=== PATIENT | male | born 1960 | race Caucasian/White ===

== ENCOUNTER 2016-10-23 05:47 | Inpatient (IN) | payer BC ==
--- NOTE | 2016-10-23 05:57 | Emergency Department Record ---
History of Present Illness - General Chief Complaint: Shortness of breath Stated Complaint: SOB/ ELINOR Time Seen by Provider: 10/23/16 05:56 Source: Patient Mode of Arrival: Ambulatory Limitations: No limitations - History of Present Illness Initial Comments: The patient is here due to a 13 hour hx of ELINOR, SOB and CP with coughing and breathing. He is coughing up sputum intermittently at times. The patient has a hx of COPD but has not had a problem with breathing for a few weeks. The pain is described as sharp and stabbing at times and tightness at times but it is much worse with breathing and coughing. He denies any sweating, nausea, lightheadedness. The patient does state the pain is improved with sitting forward and he has had Pericarditis in the past which was similar (but much worse in severity). MD Complaint: Cough, Shortness of breath Onset/Timin -: Hour(s) Improves With: Nothing Worsens With: Nothing Known History Of: COPD Associated Symptoms: Chest pain Treatments Prior to Arrival: None - Related Data Home Medications Medication Instructions Recorded Confirmed Last Taken No Home Med [NO HOME MEDS] 10/23/16 10/23/16 Unknown Allergies Allergy/AdvReac Type Severity Reaction Status Date / Time No Known Drug Allergies Allergy Verified 07/03/15 21:30 Travel Screening - Travel/Exposure Within Last 30 Days Have you traveled within the last 30 days?: No - Travel/Exposure Within Last Year Have you traveled outside the [place] in the last year?: No - Additonal Travel Details Have you been exposed to anyone with a communicable illness?: No - Travel Symptoms Symptom Screening: None Review of Systems Constitutional: Denies: Chills, Fever Eyes: Denies: Eye discharge ENT: Reports: Congestion Respiratory: Reports: Cough, Dyspnea Cardiovascular: Denies: Arrhythmia Endocrine: Denies: Fatigue Gastrointestinal: Denies: Diarrhea, Vomiting Genitourinary: Denies: Dysuria Musculoskeletal: Denies: Arthralgia Skin: Denies: Bruising Past Medical History - SOCIAL HISTORY Smoking Status: Current every day smoker Alcohol Use: Heavy Alcohol Use Comment: 6 beers daily Drug Use: None - RESPIRATORY Hx Respiratory Disorders: Yes Hx Bronchitis: Yes Hx COPD: Yes Comment:: emphysema - CARDIOVASCULAR Hx Cardio Disorders: Yes Comment:: pericarditis in past - NEURO Hx Neuro Disorders: No - GI Hx GI Disorders: No Comment:: Hx of Hep C - Hx Genitourinary Disorders: No - ENDOCRINE Hx Endocrine Disorders: No - MUSCULOSKELETAL Hx Musculoskeletal Disorders: No - PSYCH Hx Psych Problems: No - HEMATOLOGY/ONCOLOGY Hx Hematology/Oncology Disorders: Yes Comment:: HEPITITIS C Family Medical History Any Significant Family History?: No Hx Cancer: Grandparents Hx Diabetes: Father Hx Heart Disease: Father Hx HTN: Father, Mother, Brother/Sister, Grandparents Physical Exam - General General Appearance: Alert, Oriented x3, Cooperative, No acute distress - Head Head exam: Atraumatic, Normocephalic, Normal inspection - Eye Eye exam: Normal appearance, PERRL - Neck Neck exam: Normal inspection, Full ROM. negative: Tenderness - Respiratory Respiratory exam: Decreased breath sounds, Wheezes (mildly at the bases.). negative: Normal lung sounds bilaterally - Cardiovascular Cardiovascular Exam: Regular rate, Normal rhythm, Normal heart sounds - GI/Abdominal GI/Abdominal exam: Soft, Normal bowel sounds. negative: Tenderness - Extremities Extremities exam: Normal inspection, Full ROM, Normal capillary refill. negative: Tenderness - Neurological Neurological exam: Normal gait. negative: Abnormal gait Course Vital Signs 10/23/16 10/23/16 05:48 05:54 Temperature 97.7 F Pulse Rate 83 Respiratory 16 Rate Blood Pressure 117/81 Pulse Ox 97 - Reevaluation(s) Reevaluation #1: The patient is doing much better after the 2 breathing treatments. He states the pain is almost gone and his breathing is much better. 10/23/16 06:34 Reevaluation #2: The patient is doing a lot better at this time. He is resting much more comfortably with much less ELINOR and now no chest discomfort. On exam his lungs still have decreased breath sounds but better aeration with no wheezes. The patient is coughing now with a productive green sputum. 10/23/16 06:45 10/23/16 06:47 Reevaluation #3: 2nd EKG: NSR at 75, Neg ST-T changes. The quality of the EKG is much improved. 10/23/16 06:47 Reevaluation #4: The patient is still doing very well. I did discuss the case with Dr. Lemon who is his PCP and he does agree to the admission. 10/23/16 06:55 Medical Decision Making - Data Complexity MDM Data: Labs Ordered and/or Reviewed, X-Ray Ordered and/or Reviewed, EKG Ordered and/or Reviewed - Lab Data Result diagrams: 10/23/16 06:00 10/23/16 06:00 - EKG Data -: EKG Interpreted by Me (Poor tracing. Poor R wave progression. No obvious ST- T changes. ) - Radiology Data Radiology results: Image reviewed (CXR: COPD with no definite infiltrate.) Disposition Disposition: Admit Clinical Impression: COPD (chronic obstructive pulmonary disease) with acute bronchitis Decision to Admit: Admit from ER Decision to Admit Date: 10/23/16 Decision to Admit Time: 06:54 Accepting Physician: Xochilt Time Discussed w/Accepting Physician: 06:55 Forms: Patient Portal Access Time of Disposition: 06:55
[2016-10-23] MEDS ORDERED: METHYLPREDNISOLONE PF 125MG/VIAL IVP ONE (06:10)
[2016-10-23] MEDS ORDERED: IPRATROPIUM/ALBUTEROL (0.5MG/3MG) NEB INH ONE (06:10)
[2016-10-23] MEDS ORDERED: ONDANSETRON HCL IV 4 MG/2 ML VIAL IVP ONE (06:14)
[2016-10-23] MEDS ORDERED: HYDROMORPHONE HCL 1 MG/ML CPJ IVP ONE (06:14)
[2016-10-23] MEDS ORDERED: ASPIRIN 81 MG CHEWABLE TABLET PO ONE (06:15)
[2016-10-23 06:16] LABS: BASO % 0.3 % (0-6); EOS % 0.5 % (0-6); GRAN % 77.3 % (47-80); HEMATOCRIT 44.7 % (42.0-52.0); HEMOGLOBIN 14.9 gm/dl (14.0-18.0); LYMPH % 10.5 % (16-45); MEAN CELL VOLUME 96.3 fl (81-97); MEAN CORPUSCULAR HEMOGLOBIN 32.1 pg (27-33); MEAN CORPUSCULAR HGB CONC 33.3 g/dl (32-36); MEAN PLATELET VOLUME 9.3 fl (7.4-10.4); MONO % 11.4 % (0-9); PLATELET COUNT 288 K/uL (130-400); RED BLOOD COUNT 4.64 M/uL (4.40-5.70); RED CELL DISTRIBUTION WIDTH 12.7 % (11.5-14.5); WHITE BLOOD COUNT W/O DIFF 11.6 K/uL (4.2-12.2)
[2016-10-23] MEDS ORDERED: ALBUTEROL SULFATE (0.083%) 2.5 MG/3 ML NEB INH ONE (06:17)
[2016-10-23 06:27] LABS: ANION GAP 14.7 (7-16); BLOOD UREA NITROGEN 9 mg/dL (9-20); CARBON DIOXIDE 28.3 mmol/L (22-30); CREATINE PHOSPHOKINASE 56 U/L (55-170); CREATININE 0.7 mg/dL (0.66-1.25); EST GLOMERULAR FILTRATION RATE > 60 ml/min; GLUCOSE,RANDOM 157 mg/dL (70-110)
[2016-10-23 06:28] LABS: INR 0.88; PARTIAL THROMBOPLASTIN TIME 31.5 SECONDS (24.5-39.1); PROTHROMBIN TIME (PATIENT) 9.9 SECONDS (9.5-12.1)
[2016-10-23 06:39] LABS: CKMB 0.6 ug/L (0-6)
[2016-10-23 06:40] LABS: TROPONIN I < 0.012 ng/mL (0.00-0.034)
[2016-10-23] MEDS ORDERED: LEVOFLOXACIN/D5W 750 MG in DEXTROSE 1 BAG IVPB ONE (06:47)
[2016-10-23] MEDS ORDERED: ACETAMINOPHEN 500 MG TABLET PO PRN (07:39)
[2016-10-23] MEDS: IPRATROPIUM/ALBUTEROL (0.5MG/3MG) NEB INH SCH ×4 (10:35→21:04)
[2016-10-23] MEDS: ENOXAPARIN 40 MG/0.4 ML SYR SQ SCH (10:36)
[2016-10-23] MEDS: CEFTRIAXONE SODIUM 1 GM in 0.9 % SODIUM CHLORIDE 100ML 100 ML IVPB SCH ×2 (10:36→20:57)
[2016-10-23 11:42] LABS: CKMB 0.6 ug/L (0-6); TROPONIN I < 0.012 ng/mL (0.00-0.034)
[2016-10-23] MEDS: HYDROMORPHONE HCL 1 MG/ML CPJ IVP PRN ×2 (13:02→22:08)
[2016-10-23] MEDS ORDERED: ALBUTEROL SULFATE (0.083%) 2.5 MG/3 ML NEB INH PRN (13:06)
[2016-10-23] MEDS: METHYLPREDNISOLONE PF 125MG/VIAL IVP SCH ×2 (13:09→20:57)
[2016-10-23] MEDS ORDERED: ONDANSETRON HCL IV 4 MG/2 ML VIAL IVP PRN (13:13)
[2016-10-23] MEDS ORDERED: LORAZEPAM 2 MG/ML VIAL IV ONE (13:17)
--- NOTE | 2016-10-23 14:52 | History and Physical Report ---
CHIEF COMPLAINT: Dyspnea and chest pain. HISTORY OF PRESENT ILLNESS: This 56-year-old male presented to the Emergency Department with thirteen hours of dyspnea, shortness of breath, chest pain, coughing, and bringing up yellow sputum. He has a history of COPD and smoking one pack of cigarettes a day. The last time the patient was seen by me was about fifteen months ago when he was in the hospital for bronchitis, COPD and he does not like to follow-up in the office because of cost and he just doesn't like going to the doctor. He had a similar episode of bronchitis and COPD in approximately June of 2015. He also had pericarditis when he was 28 years old, he states this claudia feels like the pericarditis he had before, but much worse. PAST MEDICAL HISTORY: COPD, tobacco use disorder, pericarditis when he was 28 years old, and history of hepatitis C. PAST SURGICAL HISTORY: Amputation of the left index finger in 1978 and hemorrhoidectomy in 1987. MEDICATIONS ON ADMISSION: None. ALLERGIES: No known drug allergies. FAMILY/PSYCHOSOCIAL HISTORY: He smokes one pack of cigarettes a day. He drinks six beers a day. His grandparents had cancer. Father has diabetes and heart disease. Father, mother, brother, sisters and grandparents have hypertension. REVIEW OF SYSTEMS: HEENT: About two weeks ago he had congestion and cough that started to get better and then got worse in the last three to four days. Denies a sore throat. Cardiovascular: His chest pain seems to be in the area around the supraclavicular notch and he seems to be short of breath and panting when he gets these episodes. Dilaudid in the Emergency Department seemed to help and also breathing treatments. He had two breathing treatments in the Emergency Room. He says he is not short of breath, but he is panting and breathing fast when these episodes come one. Cardiovascular: Regular rate and rhythm without rubs, gallops, or rhythm problems. His second set of cardiac enzymes are negative. Respiratory: He has a history of COPD and emphysema. He smokes one pack a day and does not seem to be interested in stopping the cigarettes. Gastrointestinal: No nausea, vomiting, diarrhea, black stools, or bloody stools. Genitourinary: No dysuria, hematuria, frequency, or burning on urination. Musculoskeletal: No joint or bone abnormalities. Neurologic: No CVA, paralysis or paresthesias. Endocrine: No diabetes or thyroid disease. Integument: No rash, ulcers, change in moles or yellow skin. PHYSICAL EXAMINATION: Height is 5'7", weight is 126 pounds. Vital signs: Temperature was 97.6, pulse was 72, blood pressure was 108/66, pulse ox is is 96 % on two liters, respiratory rare is 18. HEENT: Pupils are equal, round and reactive to light and accommodation. Extraocular muscles are intact. Throat is clear. Nose is clear. Tympanic membranes are stevenson. NECK: Supple. No jugular venous distention. No hepatojugular reflex. No carotid bruits. Thyroid is smooth. CARDIOVASCULAR: Regular rate and rhythm without murmurs, clicks, rubs or gallops. RESPIRATORY: Wheezing bilaterally and at times having tachypnea. ABDOMEN: Soft, nontender. No hepatosplenomegaly. No tenderness. Bowel sounds are active. No bruits. EXTREMITIES: No pitting edema. No cyanosis. No clubbing. Full range of motion. Peripheral pulses are good. BREASTS: Normal male breasts. RECTAL: Deferred. GENITALIA: Deferred. NEUROLOGICAL: Cranial nerves II through XII intact. No gross defects. Sensation normal. Strength normal. Deep tendon reflexes equal bilaterally. Babinski's negative. MENTAL STATUS: Alert and oriented times three. IMPRESSION: 1. ACUTE BRONCHITIS. 2. ACUTE EXACERBATION OF COPD. 3. CHEST PAIN. 4. HISTORY OF HEPATITIS C. 5. TOBACCO USE DISORDER. PLAN: IV Rocephin 1 gram q twelve hours, Azithromycin 500 mg q daily, Solu- Medrol 80 mg q eight hours, breathing treatments and DuoNeb's q four hours while awake and Albuterol neb's q one hour prn. Will obtain a CTA of the chest with contrast to rule out dissection or PE. Nick Lemon D.O. Date & Time JOB NUMBER: [id number] MTDD
[2016-10-23 17:47] LABS: CKMB 0.5 ug/L (0-6)
[2016-10-23 17:49] LABS: TROPONIN I < 0.012 ng/mL (0.00-0.034)
[2016-10-24] MEDS: METHYLPREDNISOLONE PF 125MG/VIAL IVP SCH ×2 (01:20→06:10)
[2016-10-24] MEDS: AZITHROMYCIN 500 MG in 0.9 % SODIUM CHLORIDE 250ML 250 ML IVPB SCH (06:10)
[2016-10-24] MEDS: IPRATROPIUM/ALBUTEROL (0.5MG/3MG) NEB INH SCH ×4 (06:18→22:03)
[2016-10-24 06:20] LABS: HEMATOCRIT 38.8 % (42.0-52.0); HEMOGLOBIN 13.1 gm/dl (14.0-18.0); LYMPH % 3.2 % (16-45); MEAN CELL VOLUME 96.3 fl (81-97); MEAN CORPUSCULAR HEMOGLOBIN 32.5 pg (27-33); MEAN CORPUSCULAR HGB CONC 33.8 g/dl (32-36); MEAN PLATELET VOLUME 9.2 fl (7.4-10.4); MONO % 5.5 % (0-9); PLATELET COUNT 255 K/uL (130-400); RED BLOOD COUNT 4.03 M/uL (4.40-5.70); RED CELL DISTRIBUTION WIDTH 12.5 % (11.5-14.5)
[2016-10-24 06:27] LABS: WHITE BLOOD COUNT W/O DIFF 20.6 K/uL (4.2-12.2)
[2016-10-24 06:28] LABS: ALB/GLOB RATIO 1.3 (1.1-1.8); ALBUMIN 3.9 gm/dL (3.5-5.0); ALKALINE PHOSPHATASE 43 U/L (38-126); ALT/SGPT 23 U/L (21-72); ANION GAP 12.7 (7-16); AST/SGOT 17 U/L (17-59); BILIRUBIN,TOTAL 0.24 mg/dL (0.2-1.3); BLOOD UREA NITROGEN 9 mg/dL (9-20); CARBON DIOXIDE 25.3 mmol/L (22-30); CREATININE 0.6 mg/dL (0.66-1.25); EST GLOMERULAR FILTRATION RATE > 60 ml/min; GLUCOSE,RANDOM 187 mg/dL (70-110); TOTAL PROTEIN 6.8 gm/dL (6.3-8.2)
[2016-10-24 06:36] LABS: PLATELET ESTIMATE NORMAL (NORMAL)
--- NOTE | 2016-10-24 07:36 | RADIOLOGY REPORT ---
EXAM: CHEST, AP VIEW HISTORY: THE PATIENT STATES SHORTNESS OF BREATH AND ACUTE CHEST PAIN. TECHNIQUE: AP portable view of the chest was provided along with comparison study dated 07/03/15. FINDINGS: The cardiomediastinal silhouette is within normal limits for size and contour. The alfa appear unremarkable. COPD changes are identified bilaterally. No pneumothorax is noted. There is no radiographic evidence of a focal infiltrate or pleural effusion. IMPRESSION: STABLE COPD CHANGES WITH RESPECT TO THE PRIOR EXAMINATION DISCUSSED ABOVE. JOB NUMBER: [id number] MTDD
--- NOTE | 2016-10-24 07:43 | CT ANGIOGRAM REPORT ---
EXAM: CTA OF THE CHEST HISTORY: THE PATIENT HAS SHORTNESS OF BREATH AND CHEST PAIN SINCE LAST NIGHT. TECHNIQUE: Serial axial CTA of the chest was performed at 1.25 mm intervals from the thoracic inlet to the dome of the diaphragm following the intravenous administration of 80 ml of Omnipaque 350. Comparison: Chest x-ray dated 03/21/08 is available. FINDINGS: The thoracic inlet is unremarkable. The lung windows demonstrate severe COPD changes bilaterally. There is a nonspecific, spiculated 7.4 mm density within the right lung apex. Neoplastic etiology cannot be excluded. PET scan can be obtained for further evaluation. Linear passive subsegmental atelectasis versus scarring is noted at the right lung base. No pneumothorax is noted. The visualized heart size and contour is within normal limits. The thoracic aorta is within normal limits for contour, caliber and flow. There is no CTA evidence of a filling defect within the primary and secondary pulmonary vascular tree to suggest a pulmonary embolus. There is no CTA evidence of mediastinal, hilar or axillary lymphadenopathy. Axial images through the upper abdomen demonstrate the visualized liver, spleen , and adrenal glands to be within normal limits. Bone windows demonstrate no CT evidence of a fracture or dislocation of the visualized osseous structures of the chest. No osteolytic or osteoblastic lesions are identified. IMPRESSION: 1. NO CTA EVIDENCE OF A PULMONARY EMBOLUS DISCUSSED ABOVE. 2. SEVERE COPD CHANGES BILATERALLY DISCUSSED ABOVE. NONSPECIFIC SPICULATED NODULES NOTED WITHIN THE RIGHT LUNG APEX DESCRIBED ABOVE. NEOPLASTIC ETIOLOGY CANNOT BE EXCLUDED. PET SCAN CAN BE OBTAINED FOR FURTHER EVALUATION. JOB NUMBER: [id number] MTDD
[2016-10-24] MEDS ORDERED: METHYLPREDNISOLONE PF 125MG/VIAL IVP SCH (10:00)
[2016-10-24] MEDS: ENOXAPARIN 40 MG/0.4 ML SYR SQ SCH (10:15)
[2016-10-24] MEDS: CEFTRIAXONE SODIUM 1 GM in 0.9 % SODIUM CHLORIDE 100ML 100 ML IVPB SCH ×2 (10:23→21:29)
[2016-10-24] MEDS ORDERED: SODIUM CHLORIDE 7% FOR INHALATION 4 ML NEB INH ONE (15:44)
[2016-10-24] MEDS: PREDNISONE 20 MG TAB PO SCH (18:51)
[2016-10-24] MEDS: SODIUM CHLORIDE 7% FOR INHALATION 4 ML NEB INH SCH (22:03)
[2016-10-25] MEDS: IPRATROPIUM/ALBUTEROL (0.5MG/3MG) NEB INH SCH ×3 (00:22→10:20)
[2016-10-25] MEDS: AZITHROMYCIN 500 MG in 0.9 % SODIUM CHLORIDE 250ML 250 ML IVPB SCH ×2 (05:55→06:01)
[2016-10-25] MEDS: SODIUM CHLORIDE 7% FOR INHALATION 4 ML NEB INH SCH (06:03)
--- NOTE | 2016-10-25 09:15 | Discharge Note ---
Discharge Note - Date Date of Discharge Note: 10/25/16 Disposition: Home, Self-Care Condition: (1) Good Additional Instructions: follow up with Dr. Lemon on sunday drink lots of water Prescriptions: Prednisone [Prednisone 10Mg] 10 mg PO ASDIR #30 tab Albuterol Sulfate [Proair Hfa] 1 - 2 puff IH .EVERY 4-6 HOURS PRN #1 inhaler PRN Reason: Difficulty In Breathing Azithromycin [Zithromax] 500 mg PO DAILY #10 tablet Forms: Patient Portal Access
[2016-10-25] MEDS: CEFTRIAXONE SODIUM 1 GM in 0.9 % SODIUM CHLORIDE 100ML 100 ML IVPB SCH (09:19)
[2016-10-25] MEDS: PREDNISONE 20 MG TAB PO SCH (09:22)
--- NOTE | 2016-10-27 09:03 | Discharge Summary ---
DATE OF DISCHARGE: 10/25/2016. DISCHARGE DIAGNOSES: 1. Acute bronchitis. 2. Acute exacerbation of chronic obstructive pulmonary disease. 3. Pulmonary nodule in the right apex of the lung. The radiologist recommends a P.E.T. scan as an outpatient to determine if there is a need for biopsy. 4. Tobacco use disorder. 5. A history of hepatitis C. ATTENDING PHYSICIAN: Nick Lemon D.O. REASON FOR HOSPITALIZATION: Dyspnea and chest pain. HISTORY OF THE PRESENT ILLNESS: This 56-year-old male presented to the emergency department with 13 hours of dyspnea, shortness of breath, chest pain, coughing, bringing up yellow sputum. He was evaluated in the emergency department by Dr. Smart. He was admitted to the hospital for intravenous antibiotics, intravenous Solu Medrol, breathing treatments, oxygen therapy, and further evaluation of his chest pain. SIGNIFICANT FINDINGS: LABORATORY DATA: Cardiac enzymes times two were negative. White blood cell count initially was 11,600. After the Solu Medrol it went it up to 20,600. Hemoglobin was 14.9. The lymphs were 10 and monos were 11. Bands were 86. The potassium was 4.5. Sodium was 138. Chloride was 100. Creatinine was 0.6. BUN was 9.0. DIAGNOSTIC DATA: He had a CTA of the chest which was negative for pulmonary embolus, dissection, or any abnormalities. However it did show a small, spiculated nodule in the right apex of the lung. He recommends a P.E.T. scan to decide if it is scar tissue or if it needs a biopsy. If it is not hot, then he would recommend just observing it. If it is hot from the P.E.T. scan then he would recommend a biopsy. However, it is too small at this point that the risk/ benefit is too high because of his severe emphysema, and most likely he will get a pneumothorax when they try to get a biopsy of it. THERAPY PROVIDED: The patient was given intravenous Solu Medrol, Rocephin IV 1.0 gm q. 12 hours, azithromycin 500 mg q. daily, and he improved dramatically. He also needed some pain medication because of the sharp pain he was having with coughing and moving around initially in the anterior chest in the supraclavicular notch area. The patient still smokes. I advised him to stop smoking. HOSPITAL COURSE: He is improved. He is walking in the halls without needing oxygen. He is breathing much better. CONDITION AT DISCHARGE: Much improved. DISCHARGE INSTRUCTIONS: 1. Follow up with Dr. Lemon on Sunday at 9:00 a.m. for re-evaluation and possible follow up and to set up an outpatient P.E.T. scan. 2. Azithromycin 500 mg q. daily for ten days. 3. Albuterol inhaler two puffs every four hours while awake. 4. Prednisone. We will start tapering the dose at 40 mg for three days, 30 mg for three days, 20 mg for three days, and 10 mg for three days. 5. Drink a lot of fluids. 6. Use Tylenol and Motrin for pain. Nick Lemon D.O. Date Time JOB NUMBER: [id number] MTDD
== END 2016-10-25 10:44 | disposition home or self-care (01) | DRG 192 ==
LOC: ER 05:47 → OBSVTOIN 07:34 → MEDSURG 07:34
PROVIDERS: ADMIT Emergency Medicine; ATTEND Emergency Medicine
DX: J44.0 Chronic obstructive pulmonary disease with (acute) lower respiratory infection (principal); J20.9 Acute bronchitis, unspecified; J44.1 Chronic obstructive pulmonary disease with (acute) exacerbation; Z86.19 Personal history of other infectious and parasitic diseases; F17.200 Nicotine dependence, unspecified, uncomplicated; R91.1 Solitary pulmonary nodule
CPT/HCPCS: 36600; 71010; 71275; 80048; 80053; 82550; 82553; 84484; 85025; 85027; 85379; 85610; 85651; 85730; 86140; 93005; 93010; 94640; 94761; 96365; 96375; 99285; J0456; J1170; J1650; J1956; J2405; J2930; J7050; J7512; J7613

== ENCOUNTER 2017-03-16 01:27 | Emergency (ER) | payer BC ==
[2017-03-16] MEDS ORDERED: IPRATROPIUM/ALBUTEROL (0.5MG/3MG) NEB INH ONE (01:33)
[2017-03-16] MEDS ORDERED: METHYLPREDNISOLONE PF 125MG/VIAL IVP ONE (01:33)
--- NOTE | 2017-03-16 01:38 | Emergency Department Record ---
History of Present Illness - General Chief Complaint: Shortness of breath Stated Complaint: ELINOR Time Seen by Provider: 03/16/17 01:32 Source: Patient, Family Mode of Arrival: Wheelchair Limitations: Physical limitation (ELINOR) - History of Present Illness Initial Comments: 56 yo male presents to ED with a CC of difficulty breathing and wheezing symptoms that began just prior to arrival per his . Patient reports a history of COPD with (1) prior episode of previous symptoms. Patient's reports recent illness for the past 2-3 days. MD Complaint: Shortness of breath Onset/Timin -: Hour(s) Severity: Severe Consistency: Constant Improves With: Nothing Worsens With: Nothing Known History Of: COPD - Related Data Home Oxygen Therapy: No Home Medications Medication Instructions Recorded Confirmed Last Taken Beclomethasone Dipropionate [Qvar 2 puff INH BID 03/16/17 03/16/17 Unknown 40Mcg/100 Actuat Inhaler] Previous Rx's Medication Instructions Recorded Albuterol Sulfate [Proair Hfa] 1 - 2 puff IH .EVERY 4-6 HOURS PRN 10/25/16 #1 inhaler Allergies Allergy/AdvReac Type Severity Reaction Status Date / Time No Known Drug Allergies Allergy Verified 07/03/15 21:30 Review of Systems ROS unobtainable: Other (due to acuity of disease) Past Medical History - SOCIAL HISTORY Smoking Status: Current every day smoker Alcohol Use Comment: beer 6/day Drug Use: None - RESPIRATORY Hx Respiratory Disorders: No Hx Bronchitis: Yes Hx COPD: Yes Comment:: emphysema - CARDIOVASCULAR Hx Cardio Disorders: No - NEURO Hx Neuro Disorders: No - GI Hx GI Disorders: No Comment:: Hx of Hep C - Hx Genitourinary Disorders: No - ENDOCRINE Hx Endocrine Disorders: No Hx Diabetes: No Hx Thyroid Disease: No - MUSCULOSKELETAL Hx Musculoskeletal Disorders: Yes Comment:: amputation left index finger - PSYCH Hx Psych Problems: No - HEMATOLOGY/ONCOLOGY Hx Hematology/Oncology Disorders: Yes Comment:: HEPITITIS C Family Medical History Hx Cancer: Grandparents Hx Diabetes: Father Hx Heart Disease: Father Hx HTN: Father, Mother, Brother/Sister, Grandparents Physical Exam - General General Appearance: Alert, Oriented x3, Severe distress Limitations: Physical limitation (acuity of condition, he is unable to speak) - Head Head exam: Atraumatic, Normocephalic, Normal inspection Head exam detail: negative: Abrasion, Contusion, Cheng's sign, General tenderness, Hematoma, Laceration - Eye Eye exam: Normal appearance. negative: Conjunctival injection, Periorbital swelling, Periorbital tenderness, Scleral icterus - ENT Ear exam: negative: Auricular hematoma, Auricular trauma Nasal Exam: negative: Active bleeding, Discharge, Dried blood, Foreign body Mouth exam: negative: Drooling, Laceration, Muffled voice, Tongue elevation - Neck Neck exam: Normal inspection. negative: Meningismus, Tenderness - Respiratory Respiratory exam: Decreased breath sounds, Respiratory distress. negative: Prolonged expiratory, Stridor - Cardiovascular Cardiovascular Exam: Regular rate, Normal rhythm, Normal heart sounds - GI/Abdominal GI/Abdominal exam: Soft. negative: Rebound, Rigid, Tenderness - Rectal Rectal exam: Deferred - exam: Deferred - Extremities Extremities exam: Normal inspection. negative: Pedal edema, Tenderness - Back Back exam: Denies: CVA tenderness (R), CVA tenderness (L) - Neurological Neurological exam: Alert, Oriented X3. negative: Motor sensory deficit - Psychiatric Psychiatric exam: Anxious - Skin Skin exam: Normal color. negative: Abrasion Type of lesion: negative: abrasion Course - Reevaluation(s) Reevaluation #1: 03/16/17 01:49 Patient is receiving Duoneb/Continuos albuterol, breathing is improved on re- examination. Will monitor closely. Reevaluation #2: 03/16/17 02:12 EKG: NSR 93 Normal axis, normal intervals Nonspecific ST-T wave changes Reevaluation #3: 03/16/17 02:13 Patient reassessed, now able to speak and his breathing is greatly improved. Will continue to observe. Reevaluation #4: 03/16/17 02:24 Labs reviewed and are grossly unremarkable for an acute process. Reevaluation #5: 03/16/17 02:39 CXR reviewed, c/w bilateral pneumonia L>R. Repeat Vitals: RR 30, biox 88% RA, pulse 115. Will transfer for a higher level of care to [facility] per patient choice. Case was discussed with Dr. Ontiveros, will admit for higher level of care (SDU) from the ED. 03/16/17 02:51 Medical Decision Making - Lab Data Result diagrams: 03/16/17 01:35 03/16/17 01:35 Critical Care Time Critical Care Time: Yes Total Critical Care Time: 35 Critical Care Time: Diagnosis and treatment for near respiratory failure, hypoxia, and respiratory distress. Disposition Disposition: Transfer Clinical Impression: COPD (chronic obstructive pulmonary disease) with acute bronchitis, Hypoxia Pneumonia Qualifiers: Pneumonia type: due to unspecified organism Laterality: bilateral Lung location : lower lobe of lung Qualified Code(s): J18.9 - Pneumonia, unspecified organism Disposition: Acute Care Hospital Transfer Transfer To: [facility] Reason For Transfer: SDU, Hypoxia Accepting Physician: Rama Time Discussed w/Accepting Physician: 02:52 Condition: (3) Guarded Forms: Patient Portal Access Time of Disposition: 02:52
[2017-03-16 01:43] LABS: BASO % 0.7 % (0-6); EOS % 1.2 % (0-6); HEMATOCRIT 46.7 % (42.0-52.0); HEMOGLOBIN 15.2 gm/dl (14.0-18.0); LYMPH % 27.4 % (16-45); MEAN CELL VOLUME 91.6 fl (81-97); MEAN CORPUSCULAR HEMOGLOBIN 29.8 pg (27-33); MEAN CORPUSCULAR HGB CONC 32.5 g/dl (32-36); MEAN PLATELET VOLUME 8.8 fl (7.4-10.4); MONO % 8.7 % (0-9); PLATELET COUNT 343 K/uL (130-400); RED CELL DISTRIBUTION WIDTH 12.7 % (11.5-14.5); WHITE BLOOD COUNT W/O DIFF 7.5 K/uL (4.2-12.2)
[2017-03-16] MEDS ORDERED: ALBUTEROL SULFATE (0.083%) 2.5 MG/3 ML NEB INH SCH ×2 (01:45→03:45)
[2017-03-16] MEDS ORDERED: ACETAMINOPHEN 1,000 MG/100 ML BTL IVPB ONE (01:50)
[2017-03-16 01:54] LABS: ALB/GLOB RATIO 1.1 (1.1-1.8); ALBUMIN 4.7 gm/dL (3.5-5.0); ALKALINE PHOSPHATASE 70 U/L (38-126); ALT/SGPT 27 U/L (21-72); ANION GAP 11.4 (7-16); AST/SGOT 31 U/L (17-59); BILIRUBIN,TOTAL 0.52 mg/dL (0.2-1.3); BLOOD UREA NITROGEN 8 mg/dL (9-20); CARBON DIOXIDE 26.6 mmol/L (22-30); CREATININE 0.9 mg/dL (0.66-1.25); EST GLOMERULAR FILTRATION RATE > 60 ml/min; GLUCOSE,RANDOM 108 mg/dL (70-110)
[2017-03-16] MEDS ORDERED: ALBUTEROL SULFATE 0.5% 5 MG/ML BTL 20ML INH SCH (02:00)
[2017-03-16 02:23] LABS: TROPONIN I < 0.050 ng/mL (0.0-0.4)
[2017-03-16] MEDS ORDERED: CEFTRIAXONE SODIUM 1 GM in 0.9 % SODIUM CHLORIDE 100ML 100 ML IVPB ONE (02:38)
[2017-03-16] MEDS ORDERED: AZITHROMYCIN 500 MG in 0.9 % SODIUM CHLORIDE 250ML 250 ML IVPB ONE (02:38)
[2017-03-16] MEDS ORDERED: 0.9 % SODIUM CHLORIDE 1000ML 1,000 ML IV SCH (02:45)
--- NOTE | 2017-03-16 16:41 | RADIOLOGY REPORT ---
EXAM: CHEST AP or PA ONLY HISTORY: COLD-TYPE SYMPTOMS FOR A FEW DAYS, SHORTNESS OF BREATH TODAY. TECHNIQUE: AP upright portable chest. COMPARISON: AP portable chest, 10/23/16. FINDINGS: Heart size normal. Lungs again appear hyperinflated suggesting underlying COPD. However, there also appears to be some new infiltrate in the left lower lung presumably representing pneumonitis, probably within the lingula. Follow-up films are suggested to demonstrate clearing, preferably upright PA and lateral. There is also a suggestion of an 8 mm nodule in the right apical region overlying the anterior end of the right first rib. This was not clearly seen previously. This may just be overlapping structures but if this persists on the subsequent study, chest CT would be suggested to exclude a developing nodule in the right apex. IMPRESSION: 1. HYPERINFLATION SUGGESTING COPD. 2. NEW INFILTRATE, LEFT LOWER LUNG, PROBABLY IN THE LINGULA. RECOMMEND FOLLOW- UP FILMS TO DEMONSTRATE CLEARING. 3. QUESTIONABLE APPROXIMATELY 8 MM NODULE, RIGHT APICAL REGION DESCRIBED ABOVE. JOB NUMBER: [id number] MTDD
== END 2017-03-16 04:04 | disposition short-term general hospital (02) ==
LOC: ER 01:27
DX: J44.1 Chronic obstructive pulmonary disease with (acute) exacerbation (principal); J20.9 Acute bronchitis, unspecified; J44.0 Chronic obstructive pulmonary disease with (acute) lower respiratory infection; J18.9 Pneumonia, unspecified organism; R09.02 Hypoxemia; F17.210 Nicotine dependence, cigarettes, uncomplicated
CPT/HCPCS: 71010; 80053; 84484; 85025; 93005; 93010; 94640; 94644; 96374; 96375; 99285; J0456; J2930; J7030; J7050; J7613

== ENCOUNTER 2017-12-07 20:47 | Inpatient (IN) | payer BC ==
[2017-12-07] MEDS ORDERED: METHYLPREDNISOLONE PF 125MG/VIAL IVP ONE (20:50)
[2017-12-07] MEDS ORDERED: ALBUTEROL SULFATE 0.5% 5 MG/ML BTL 20ML INH SCH ×4 (21:00→21:45)
--- NOTE | 2017-12-07 21:00 | Emergency Department Record ---
History of Present Illness - General Chief Complaint: Shortness of breath Stated Complaint: ELINOR/COPD Time Seen by Provider: 12/07/17 20:48 Source: Patient Mode of Arrival: Ambulatory Limitations: No limitations - History of Present Illness Initial Comments: 57 yo male presents to ED for evaluation of increasing difficulty in breathing symptoms and history of COPD. Patient reports that his symptoms began this morning, reports that he is getting over pneumonia and has been on Prednisone for his COPD symptoms. Patient denies fevers, chills, or productive cough symptoms. MD Complaint: Shortness of breath Onset/Timin -: Hour(s) Severity: Severe Consistency: Constant Improves With: Nothing, Rest Worsens With: Exertion Known History Of: COPD, Recurrent pneumonia Associated Symptoms: Denies other symptoms Treatments Prior to Arrival: Bronchodilator - Related Data Home Oxygen Therapy: No Previous Rx's Medication Instructions Recorded Albuterol Sulfate [Proair Hfa] 1 - 2 puff IH .EVERY 4-6 HOURS PRN 10/25/16 #1 inhaler Allergies Allergy/AdvReac Type Severity Reaction Status Date / Time No Known Drug Allergies Allergy Verified 12/07/17 20:48 Travel Screening - Travel/Exposure Within Last 30 Days Have you traveled within the last 30 days?: No - Travel/Exposure Within Last Year Have you traveled outside the [place] in the last year?: No - Additonal Travel Details Have you been exposed to anyone with a communicable illness?: No - Travel Symptoms Symptom Screening: None Review of Systems Constitutional: Denies: Chills, Fever, Malaise, Night sweats Eyes: Denies: Eye discharge, Eye pain ENT: Denies: Congestion, Ear pain Respiratory: Reports: Dyspnea. Denies: Cough, Hemoptysis Cardiovascular: Reports: Dyspnea on exertion. Denies: Chest pain, Edema Endocrine: Denies: Fatigue, Heat or cold intolerance Gastrointestinal: Denies: Abdominal pain, Nausea, Vomiting Genitourinary: Denies: Incontinence, Retention Musculoskeletal: Denies: Arthralgia, Back pain, Gout, Joint swelling Skin: Denies: Bruising, Change in color Neurological: Denies: Abnormal gait, Confusion, Headache, Seizure Psychiatric: Denies: Anxiety Hematological/Lymphatic: Denies: Anemia, Blood Clots Past Medical History - SOCIAL HISTORY Smoking Status: Former smoker Alcohol Use: Occasional Drug Use: None - RESPIRATORY Hx Respiratory Disorders: Yes Hx Bronchitis: Yes Hx COPD: Yes Hx Pneumonia: Yes Comment:: emphysema - CARDIOVASCULAR Hx Cardio Disorders: Yes Comment:: pericarditis in past - NEURO Hx Neuro Disorders: No - GI Hx GI Disorders: Yes Comment:: Hx of Hep C - Hx Genitourinary Disorders: No - ENDOCRINE Hx Endocrine Disorders: No Hx Diabetes: No Hx Thyroid Disease: No - MUSCULOSKELETAL Hx Musculoskeletal Disorders: Yes Comment:: amputation left index finger - PSYCH Hx Psych Problems: No - HEMATOLOGY/ONCOLOGY Hx Hematology/Oncology Disorders: Yes Comment:: HEPITITIS C Family Medical History Any Significant Family History?: No Hx Cancer: Grandparents Hx Diabetes: Father Hx Heart Disease: Father Hx HTN: Father, Mother, Brother/Sister, Grandparents Physical Exam - General General Appearance: Alert, Oriented x3, Cooperative, Severe distress Limitations: No limitations - Head Head exam: Atraumatic, Normocephalic, Normal inspection Head exam detail: negative: Abrasion, Contusion, Cheng's sign, General tenderness, Hematoma, Laceration - Eye Eye exam: Normal appearance. negative: Conjunctival injection, Periorbital swelling, Periorbital tenderness, Scleral icterus - ENT Ear exam: negative: Auricular hematoma, Auricular trauma Nasal Exam: negative: Active bleeding, Discharge, Dried blood, Foreign body Mouth exam: negative: Drooling, Laceration, Muffled voice, Tongue elevation - Neck Neck exam: Normal inspection. negative: Meningismus, Tenderness - Respiratory Respiratory exam: Decreased breath sounds, Prolonged expiratory, Respiratory distress. negative: Rales, Rhonchi, Stridor - Cardiovascular Cardiovascular Exam: Regular rate, Normal rhythm, Normal heart sounds - GI/Abdominal GI/Abdominal exam: Soft. negative: Rebound, Rigid, Tenderness - Rectal Rectal exam: Deferred - exam: Deferred - Extremities Extremities exam: Other (Clubing of the digits). negative: Calf tenderness, Pedal edema, Tenderness - Back Back exam: Denies: CVA tenderness (R), CVA tenderness (L) - Neurological Neurological exam: Alert, Normal gait, Oriented X3 - Psychiatric Psychiatric exam: Normal affect, Normal mood - Skin Skin exam: Normal color. negative: Abrasion Type of lesion: negative: abrasion Course Vital Signs 12/07/17 20:48 Temperature 98.9 F Pulse Rate 95 H Respiratory 30 H Rate Blood Pressure 115/86 Pulse Ox 85 L - Reevaluation(s) Reevaluation #1: 12/07/17 21:08 Patient reports recent treatment for PNA by his [employer] [employer] (Dr. Palmoo, ) with recent treatment for COPD with Prednisone (11/30/17). Reevaluation #2: 12/07/17 21:12 Patient receiving continuous duoneb, patient has mildly improved air movement, continues to exhibit respiratory distress on re-examination. Will monitor closely. Reevaluation #3: 12/07/17 21:33 Labs reviewed and are grossly unremarkable for an acute process. Reevaluation #4: 12/07/17 21:47 CXR: No acute process, chronic scarring bases, COPD. Patient reassessed, continues to have mild respiratory distress but reports overall improvement in his symptoms. Will admit for further evaluation. Medical Decision Making - Lab Data Result diagrams: 12/07/17 20:51 12/07/17 20:51 Disposition Forms: Patient Portal Access Quality - Quality Measures Quality Measures: N/A - Blood Pressure Screening Does Patient Have Any of the Following: No Blood Pressure Classification: Pre-Hypertensive BP Reading Systolic Measurement: 115 Diastolic Measurement: 86 Screening for High Blood Pressure: < Pre-Hypertensive BP, F/U Documented > [ [id number]] Pre-Hypertensive Follow-up Interventions: Referral to alternative/primary care provider.
[2017-12-07 21:01] LABS: BASO % 0.2 % (0-6); EOS % 0.4 % (0-6); GRAN % 75.9 % (47-80); HEMATOCRIT 43.8 % (42.0-52.0); HEMOGLOBIN 14.9 gm/dl (14.0-18.0); LYMPH % 15.1 % (16-45); MEAN CELL VOLUME 90.3 fl (81-97); MEAN CORPUSCULAR HEMOGLOBIN 30.7 pg (27-33); MEAN PLATELET VOLUME 8.6 fl (7.4-10.4); MONO % 8.4 % (0-9); PLATELET COUNT 366 K/uL (130-400); RED BLOOD COUNT 4.85 M/uL (4.40-5.70); RED CELL DISTRIBUTION WIDTH 13.2 % (11.5-14.5); WHITE BLOOD COUNT W/O DIFF 13.5 K/uL (4.2-12.2)
[2017-12-07 21:16] LABS: BLOOD UREA NITROGEN 14 mg/dL (6-20); CREATININE 0.8 mg/dL (0.7-1.2); EST GLOMERULAR FILTRATION RATE > 60 mL/min
[2017-12-07 21:17] LABS: TOTAL PROTEIN 8.1 g/dL (6.6-8.7)
[2017-12-07 21:19] LABS: GLUCOSE,RANDOM 126 mg/dL (74-109)
[2017-12-07 21:22] LABS: ALB/GLOB RATIO 1.1 (1.1-1.8); ALBUMIN 4.3 g/dL (4.0-5.0); ALKALINE PHOSPHATASE 59 U/L (40-129); ALT/SGPT 23 U/L (<41); AST/SGOT 20 U/L (10.0-50.0)
[2017-12-07] MEDS ORDERED: ACETAMINOPHEN 500 MG TABLET PO PRN (22:03)
[2017-12-07] MEDS: IPRATROPIUM/ALBUTEROL (0.5MG/3MG) NEB INH SCH (22:26)
[2017-12-08] MEDS: IPRATROPIUM/ALBUTEROL (0.5MG/3MG) NEB INH SCH ×6 (02:09→22:16)
[2017-12-08] MEDS: ALBUTEROL SULFATE (0.083%) 2.5 MG/3 ML NEB INH PRN ×2 (04:18→19:39)
[2017-12-08] MEDS: 0.9 % SODIUM CHLORIDE 1000ML 1,000 ML IV PRN ×2 (04:25→14:49)
[2017-12-08] MEDS: METHYLPREDNISOLONE PF 125MG/VIAL IVP SCH ×3 (07:28→21:09)
[2017-12-08] MEDS: CEFTRIAXONE SODIUM 1 GM in 0.9 % SODIUM CHLORIDE 100ML 100 ML IVPB SCH ×2 (09:42→21:09)
[2017-12-08] MEDS: AZITHROMYCIN 500 MG TABLET PO SCH (09:42)
[2017-12-08] MEDS: ARNUITY (FLUTICASONE FUROATE) 100MCG INH INH SCH (09:49)
[2017-12-08] MEDS ORDERED: METHYLPREDNISOLONE PF 125MG/VIAL IVP SCH (10:00)
[2017-12-08] MEDS ORDERED: DIPHENHYDRAMINE HCL 25 MG CAPSULE PO ONE (20:46)
[2017-12-08] MEDS ORDERED: ALBUTEROL SULFATE 0.5% 5 MG/ML BTL 20ML INH SCH (21:45)
[2017-12-09] MEDS: IPRATROPIUM/ALBUTEROL (0.5MG/3MG) NEB INH SCH ×6 (02:04→21:36)
[2017-12-09] MEDS: 0.9 % SODIUM CHLORIDE 1000ML 1,000 ML IV PRN (02:28)
[2017-12-09] MEDS: METHYLPREDNISOLONE PF 125MG/VIAL IVP SCH (06:15)
[2017-12-09] MEDS: CEFTRIAXONE SODIUM 1 GM in 0.9 % SODIUM CHLORIDE 100ML 100 ML IVPB SCH (09:45)
[2017-12-09] MEDS: AZITHROMYCIN 500 MG TABLET PO SCH (09:45)
[2017-12-09] MEDS ORDERED: PREDNISONE 20 MG TAB PO ONE (10:39)
--- NOTE | 2017-12-09 11:58 | RADIOLOGY REPORT ---
EXAM: CHEST 1 VIEW HISTORY: DIFFICULTY BREATHING. TECHNIQUE: AP view of the chest. COMPARISON: 03/16/17 chest. FINDINGS: The heart size is normal. There is underlying emphysema. Scarring in the lung bases bilaterally. Osteopenia. No pneumothorax. IMPRESSION: UNDERLYING EMPHYSEMA WITH BIBASILAR SCARRING/FIBROSIS. THE HEART IS ENLARGED BUT STABLE. OSTEOPENIA. JOB NUMBER: [id number] MTDD
[2017-12-09 18:43] LABS: CKMB 3.8 ng/mL (<6.73)
[2017-12-09] MEDS: PREDNISONE 20 MG TAB PO SCH (18:51)
[2017-12-09] MEDS ORDERED: DIPHENHYDRAMINE HCL 25 MG CAPSULE PO PRN (19:51)
[2017-12-09] MEDS: ENOXAPARIN 40 MG/0.4 ML SYR SQ SCH (20:24)
[2017-12-10] MEDS: IPRATROPIUM/ALBUTEROL (0.5MG/3MG) NEB INH SCH ×3 (01:46→09:29)
[2017-12-10] MEDS: PREDNISONE 20 MG TAB PO SCH (07:46)
[2017-12-10] MEDS: ARNUITY (FLUTICASONE FUROATE) 100MCG INH INH SCH (09:41)
[2017-12-10] MEDS: ENOXAPARIN 40 MG/0.4 ML SYR SQ SCH (09:43)
[2017-12-10] MEDS: AZITHROMYCIN 500 MG TABLET PO SCH (09:53)
--- NOTE | 2017-12-10 13:01 | Discharge Note ---
VTE H&P Assessment - Risk for VTE Risk for VTE: Yes Risk Level: Moderate Risk Assessment Date: 12/01/17 Risk Assessment Time: 12:00 VTE Orders Placed or Will Be Placed: Yes Discharge Medications - Discharge Medications Prescriptions: Azithromycin [Zithromax] 500 mg PO Q24H #7 tab Ipratropium/Albuterol [Duoneb] 3 ml INH RESP.Q4H.WA #120 ampul.neb Home Medications: Ambulatory Orders Albuterol Sulfate [Proair Hfa] 1 - 2 puff IH .EVERY 4-6 HOURS PRN #1 inhaler 10/10 [Last Taken Unknown] Beclomethasone Dipropionate [Qvar 40Mcg/100 Actuat Inhaler] 2 puff INH BID 03/16 [Last Taken Unknown] Acetaminophen [Tylenol 500Mg Tab] 1,000 mg PO Q6H PRN tablet 12/10/17 [Last Taken Unknown] Azithromycin [Zithromax] 500 mg PO Q24H #7 tab 12/10/17 [Last Taken Unknown] Ipratropium/Albuterol [Duoneb] 3 ml INH RESP.Q4H.WA #120 ampul.neb 12/10/17 [ Last Taken Unknown] Prednisone [Prednisone 10Mg] 10 mg PO ASDIR #30 tab 12/10/17 [Last Taken Unknown ] Discharge Note - Date Date of Discharge Note: 12/10/17 Condition: (2) Stable Instructions: COPD (Chronic Obstructive Pulmonary Disease) (DC) Additional Instructions: 2 Activity: Up as tolerated 2 Diet: Regular diet 2 Consults: 2 Follow Up: with Dr. Lemon on sundaydecember 17 and follow up with Dr. Mason on December 18 as scheduled 2 2 Additional: Wear 2L oxygen when sleeping and at rest Wear 3L oxygen when up and active Start QVar tomorrow use duoneb every 4 hours while awake and start arnuity ellipta later when the duoneb stops Use albuteral inhaler as rescue 2 puffs every 2 hours PRN Prescriptions: Azithromycin [Zithromax] 500 mg PO Q24H #7 tab Ipratropium/Albuterol [Duoneb] 3 ml INH RESP.Q4H.WA #120 ampul.neb Prednisone [Prednisone 10Mg] 10 mg PO ASDIR #30 tab Referrals: Xochilt,Nick A, D.O. [Primary Care Provider] - Forms: Patient Portal Access
--- NOTE | 2017-12-11 07:01 | History and Physical Report ---
DATE: 12/08/2017 CHIEF COMPLAINT: Dyspnea. HISTORY OF PRESENT ILLNESS: This 57-year-old male presented to the emergency department acutely short of breath at 8 p.m. yesterday. He recently had pneumonia on 11/07/2017, treated by Dr. Ellis, his in house cra at [facility]. He had an antibiotic for a week. He does not know the name of the antibiotic. He was put on prednisone, a tapering dose. He was doing fairly well. He was scheduled to have another CT scan and a followup with Dr. Ellis on 12/11/2017 to follow up on his abnormalities with his lungs by CT scan. He was very short of breath when he came in. He stated he was having a hard time getting his clothes on. He felt his fingers were blue. He does have a home pulse ox which drops down to around 86% when he is doing any sort of activity. He recently quit his job 3 weeks ago because he felt he could not do it anymore. He does state that he had a slight rhinorrhea. He is coughing up green phlegm yesterday and today. The patient was admitted to the emergency department by Dr. Culver as an observation patient but with the way he is breathing today, he needs to be inpatient for more than 24 hours, so we will switch him to an inpatient after my evaluation. The patient was given the choice of a bronchoscopy with Dr. Ellis and he was not sure he wanted to do that. He was also told that he may need to go on oxygen and he was not sure he wanted to do that the last time he saw Dr. Ellis. PAST MEDICAL HISTORY: COPD, tobacco use disorder, quit smoking September 2016, pericarditis when he was 28 years old, and history of hepatitis C. PAST SURGICAL HISTORY: Amputation of left index finger in 1978, hemorrhoidectomy in 1987. MEDICATIONS: He is on 3 inhalers. 1. Anoro Ellipta once a day. 2. QVAR twice a day. 3. Albuterol inhaler 2 puffs q.4 h. p.r.n. for rescue. ALLERGIES: No known drug allergies. FAMILY/PSYCHOSOCIAL HISTORY: He used to smoke a pack a day. He drinks 6 beers a day. His grandparents had cancer. His father had diabetes and heart disease. Mother and father and brothers, sisters, grandparents have hypertension. REVIEW OF SYSTEMS: HEENT: As stated above, had some signs of pneumonia on 11/07/[address] scanning and treated with a week of antibiotics. Recently in the last 24-36 hours he had a little congestion, rhinorrhea, and coughing up green sputum. Cardiovascular: No chest pain, palpitations, or arrhythmias. Respiratory: Short of breath. He was working very hard last night. He needed to continue his albuterol treatment for 10 mg for 1 hour. He was given Solu-Medrol 125, IV fluids 100 mL/hour and admitted to the hospital for Solu-Medrol and further evaluation. His smoking history, he stopped 1 year ago. Gastrointestinal: No nausea, vomiting, diarrhea, black stools, or bloody stools. Genitourinary: No dysuria, hematuria, frequency, or burning on urination. Musculoskeletal: No joint or bone abnormalities. Neurological: No CVA, paralysis, or paresthesias. Endocrine: No diabetes or thyroid disease. Integument: No rash, ulcers, change in moles, or yellow skin. PHYSICAL EXAMINATION: VITALS: Height 5 feet 7 inches, weight 147 pounds. Temperature 97.7, pulse 65, blood pressure 128/69, respiratory rate 27, pulse ox 95% on 2L O2 nasal cannula. HEENT: Pupils are equal, round, and reactive to light and accommodation. Extraocular muscles are intact. Throat is clear. Nose is clear. Tympanic membranes are stevenson. NECK: Supple. No jugular venous distention. No hepatojugular reflux. No carotid bruits. Thyroid is smooth. CARDIOVASCULAR: Regular rate and rhythm without murmurs, clicks, rubs, or gallops. RESPIRATORY: Decreased breath sounds bilaterally. ABDOMEN: Soft, nontender. No hepatosplenomegaly, no masses, no tenderness. Bowel sounds are active. No bruits. EXTREMITIES: No pitting edema. No cyanosis, no clubbing. Full range of motion. Peripheral pulses are good. BREASTS: Normal male breasts. RECTAL: Exam deferred. GENITALIA: Deferred. NEUROLOGIC: Cranial nerves II-XII intact. No gross defects. Sensation normal, strength normal. Deep tendon reflexes equal bilaterally with Babinski negative. MENTAL STATUS: Alert and oriented x3. IMPRESSION: 1. Acute exacerbation of chronic obstructive pulmonary disease. 2. Acute bronchitis with purulent green sputum. 3. History of tobacco use. He quit smoking in September 2016. 4. History of hepatitis C. PLAN: Continue Solu-Medrol 60 mg q.8 h., Rocephin 1 g q.12 h., azithromycin 500 mg daily orally, DuoNeb q.4 h., albuterol q.2 h. If he deteriorates, we will send him up to [facility] to see Dr. Ellis. If he improves, we will send him back to Dr. Ellis as an outpatient for further evaluation of his lungs. INPATIENT CERTIFICATION: Admit to inpatient care. Based on my medical assessment, after consideration of patient's risk factors, age, comorbidities, and patient's presenting symptoms and acuity, I expect that this patient will remain in the hospital greater than or equal to 2 midnights and that the services needed warrant inpatient care because of his breathing status, COPD, bronchitis, and need for IV Solu-Medrol, multiple breathing treatments, and oxygen therapy. Estimated length of stay is 3 days. The patient may reasonably be expected to be discharged or transferred to a hospital within 96 hours after admission to [facility]. I certify that my determination is in accordance with my understanding of Medicare requirements for reasonable and necessary inpatient services. TIMMY
--- NOTE | 2017-12-11 07:10 | Discharge Summary ---
DATE: 12/10/2017 at 1:04 p.m. DISCHARGE DIAGNOSES: 1. Acute exacerbation of chronic obstructive pulmonary disease. 2. Acute bronchitis. 3. Hypoxia requiring home oxygen. This is a new development for him; 2L/min at rest and 3L/min with exercise. His qualifier went down to 87% on exercise. 4. History of tobacco use. He quit in September 2016. ATTENDING PHYSICIAN: Nick Lemon DO REASON FOR HOSPITALIZATION: Dyspnea. This 57-year-old male presented to the emergency department short of breath, much worse over the last 12-24 hours prior to admission. He was evaluated in the emergency department by Dr. Culver, admitted to the hospital after multiple breathing treatments in the emergency department, Solu-Medrol, and the need for oxygen therapy. The patient recently saw the glass block bender, Dr. Ellis, who felt he probably would need oxygen soon at his last office evaluation which was approximately 1 week prior to admission. SIGNIFICANT FINDINGS: Chest x-ray showing COPD. Some bibasilar scarring fibrosis. The heart is enlarged but stable and osteopenia. No infiltrates were seen on the chest x-ray. He was coughing and bringing productive sputum. WBC 13,500, hemoglobin 14.9, potassium 3.9, BUN 14, creatinine 0.8. He had one episode of chest pain which was anterior chest wall pain. He had an EKG during that episode which showed no acute changes, normal sinus rhythm. His cardiac enzymes x2 were negative and D-dimer was negative. THERAPY PROVIDED: He was given IV Rocephin 1 g q.12 h., azithromycin 500 mg daily, Solu-Medrol 125 in the emergency department and 60 mg q.8 h. It was switched over to oral prednisone the day prior to discharge and he will be sent home with prednisone tapering dose at 40 mg a day for 3 days, 30 mg a day for 3 days, 20 mg a day for 3 days, and 10 mg a day for 3 days. He is also using DuoNeb every 4 hours. We will also send home DuoNeb nebulization every 4 hours for dyspnea. He is going home on oxygen at 2L at rest and 3L with exercise. CONDITION ON DISCHARGE: Improved but guarded because of his comorbid condition. DISCHARGE INSTRUCTIONS: Follow up with Dr. Lemon in 7 days on 12/17/2017. Follow up with Dr. Ellis on 12/18/2017. Azithromycin 500 mg daily for 7 more days. QVAR, his home inhaler 2 puffs twice a day. While he is on the nebulizer, I am going to stop the Ellipta Arnuity, so we double coverage for the Atrovent part of his treatment. He is to use albuterol inhaler for rescue 2 puffs q.2 h. p.r.n. Drink plenty of fluids. GLYNND
== END 2017-12-10 14:30 | disposition home or self-care (01) | DRG 192 ==
LOC: ER 20:47 → MEDSURG 22:09 → OBSVTOIN 12-08 13:18
PROVIDERS: ADMIT Emergency Medicine; ATTEND Emergency Medicine
DX: J44.1 Chronic obstructive pulmonary disease with (acute) exacerbation (principal); J20.9 Acute bronchitis, unspecified; R09.02 Hypoxemia; F17.210 Nicotine dependence, cigarettes, uncomplicated; Z86.19 Personal history of other infectious and parasitic diseases
CPT/HCPCS: 71045; 80053; 82553; 84484; 85025; 85379; 93005; 94620; 94640; 94644; 94760; 94761; 94762; 96374; 99285; J1650; J2930; J7512; J7613

== ENCOUNTER 2018-10-04 06:40 | Day surgery (SDC) | payer BC ==
[2018-10-04] MEDS ORDERED: PROPOFOL 10 MG/ML VIAL IV ONE (06:41)
[2018-10-04] MEDS ORDERED: LIDOCAINE 2% MDV (20MG/ML) 20ML VIAL IV ONE (06:41)
[2018-10-04] MEDS ORDERED: IPRATROPIUM/ALBUTEROL (0.5MG/3MG) NEB INH ONE (07:52)
--- NOTE | 2018-10-09 08:50 | Operative Note ---
DATE OF SURGERY: 10/04/2018 SURGEON: Quinn Powers MD OPERATION: COLONOSCOPY. INDICATIONS: This is a 58-year-old male with history of colon polyps. Last colonoscopy about 5 years ago. He presented for surveillance colonoscopy. POSTOPERATIVE DIAGNOSES: 1. An 8 mm sessile polyp in the cecum that was removed by cold snare. 2. Five 2-3 mm sessile polyps in the descending colon that were removed by cold biopsy forceps. 3. Three 5-6 mm sessile polyps in the rectum that were removed by cold snare. 4. Otherwise normal colon and terminal ileal mucosa. ANESTHESIA: Sedation is per Anesthesia. Pulse oximetry was monitored throughout the procedure to maintain O2 saturation of 90% or greater. Supplemental oxygen was administered via nasal cannula. Cardiac and vital signs were monitored throughout the duration of the procedure, and they were stable. The procedure of colonoscopy and risks and alternatives of the procedure, including the risk of bleeding and perforation, among others, were explained to the patient who voiced understanding and agreed to have the procedure done. Physical examination was performed, and the patient was found stable for sedation. PROCEDURE: The patient was placed in the left lateral position. Sedation was initiated. A digital rectal exam was performed and showed some mild external hemorrhoids with no palpable rectal masses. An Olympus PCF-180AL colonoscope was then inserted into the rectum under direct visualization. It was advanced to the cecum without difficulty. The ileocecal valve and appendiceal orifice were identified and photographed. The colonic mucosa was carefully examined upon introduction of the colonoscope. The bowel preparation was good. In the cecum was an 8 mm sessile polyp that was noted and was removed by cold snare. The ileocecal valve was intubated and terminal ileal mucosa was inspected for about 10 cm and it appeared normal. The colonoscope was then withdrawn while carefully examining the colonic mucosal surfaces. The rest of the cecum, descending colon, and transverse colon mucosa appeared normal. In the descending colon were five 2-3 mm sessile polyps that were noted and they were removed by cold biopsy forceps. The sigmoid colon appeared normal. In the rectum were three 5 mm sessile polyps that were noted and they were removed by cold snare. There were no other lesions noted and on retroflexion, there were no other lesions noted. The colonoscope was then withdrawn and the procedure was terminated. The patient tolerated the procedure well without any immediate complications. The patient remained with stable vital signs and was transferred to the recovery room. RECOMMENDATIONS: 1. The patient should be on a high-fiber diet. 2. The patient is to have a repeat colonoscopy for surveillance in 3 years. Thank you for allowing me to participate in the care of your patient. CC: DO TIMMY Nath
== END 2018-10-04 09:08 | disposition home or self-care (01) ==
LOC: HOP 06:40
PROVIDERS: ATTEND Internal Medicine Gastroenterology
DX: Z12.11 Encounter for screening for malignant neoplasm of colon (principal); Z86.010 Personal history of colon polyps; D12.0 Benign neoplasm of cecum; D12.4 Benign neoplasm of descending colon; K62.1 Rectal polyp; J44.9 Chronic obstructive pulmonary disease, unspecified; J84.10 Pulmonary fibrosis, unspecified
CPT/HCPCS: 94640

== ENCOUNTER 2019-04-10 23:24 | Inpatient (IN) | payer BC ==
[2019-04-10] MEDS ORDERED: METHYLPREDNISOLONE PF 125MG/VIAL IVP ONE (23:33)
[2019-04-10] MEDS ORDERED: IPRATROPIUM/ALBUTEROL (0.5MG/3MG) NEB INH ONE (23:33)
[2019-04-10] MEDS ORDERED: ALBUTEROL SULFATE (0.083%) 2.5 MG/3 ML NEB INH ONE (23:33)
--- NOTE | 2019-04-10 23:39 | Emergency Department Record ---
History of Present Illness - General Chief Complaint: Shortness of breath Stated Complaint: sob Time Seen by Provider: 04/10/19 23:33 Source: Patient Mode of Arrival: Ambulatory Limitations: No limitations - History of Present Illness Initial Comments: 58 yo male presents to ED for evaluation of shortness of breath and chest discomfort that began approximately 5 hours ago. Patient reports history of COPD, denies fevers, chills, or recent illness. Patient reports previous history of respiratory failure, has not been able to toleratep Bipap mask, re ports previous intubation for respiratory distress symptoms. MD Complaint: Shortness of breath Onset/Timin -: Hour(s) Severity: Moderate Severity scale (1-10): 7 Consistency: Constant Improves With: Nothing Worsens With: Nothing Known History Of: COPD Associated Symptoms: Chest pain Treatments Prior to Arrival: Bronchodilator - Related Data Home Oxygen Amount: 2 Liters Previous Rx's Medication Instructions Recorded Albuterol Sulfate [Proair Hfa] 1 - 2 puff IH .EVERY 4-6 HOURS PRN 10/25/16 #1 inhaler Acetaminophen [Tylenol 500Mg Tab] 1,000 mg PO Q6H PRN tablet 12/10/17 Azithromycin [Zithromax] 500 mg PO Q24H #7 tab 12/10/17 Ipratropium/Albuterol [Duoneb] 3 ml INH RESP.Q4H.WA #120 ampul.neb 12/10/17 Allergies Allergy/AdvReac Type Severity Reaction Status Date / Time No Known Drug Allergies Allergy Verified 12/07/17 20:48 Travel Screening - Travel/Exposure Within Last 30 Days Have you traveled within the last 30 days?: No - Travel/Exposure Within Last Year Have you traveled outside the [place] in the last year?: No - Additonal Travel Details Have you been exposed to anyone with a communicable illness?: No - Travel Symptoms Symptom Screening: None Review of Systems Constitutional: Denies: Chills, Fever, Malaise, Night sweats Eyes: Denies: Eye discharge, Eye pain ENT: Denies: Congestion, Ear pain, Epistaxis Respiratory: Reports: Dyspnea. Denies: Cough Cardiovascular: Reports: Chest pain, Dyspnea on exertion. Denies: Edema Endocrine: Denies: Fatigue, Heat or cold intolerance Gastrointestinal: Denies: Abdominal pain, Nausea, Vomiting Genitourinary: Denies: Incontinence, Retention Musculoskeletal: Denies: Arthralgia, Back pain Skin: Denies: Bruising, Change in color Neurological: Denies: Abnormal gait, Confusion, Headache, Seizure Psychiatric: Denies: Anxiety Hematological/Lymphatic: Denies: Anemia, Blood Clots Past Medical History - SOCIAL HISTORY Smoking Status: Former smoker Alcohol Use: Occasional Drug Use: None - RESPIRATORY Hx Respiratory Disorders: Yes Hx Bronchitis: Yes Hx COPD: Yes Hx Pneumonia: Yes Hx Sleep Apnea: No Comment:: emphysema, pulmonary fibrosis - CARDIOVASCULAR Hx Cardio Disorders: Yes Hx Abnormal EKG: No Hx Chest Pain: No Hx CHF: No Hx Deep Vein Thrombosis: No Hx Heart Attack: No Hx Irregular Heartbeat: No Hx Palpitations: No Comment:: pericarditis in past - NEURO Hx Neuro Disorders: No - GI Hx GI Disorders: Yes Hx Hepatitis/Jaundice: Yes (Hep C) Hx of Polyps: Yes Comment:: . - Hx Genitourinary Disorders: No - ENDOCRINE Hx Endocrine Disorders: No Hx Diabetes: No Hx Thyroid Disease: No - MUSCULOSKELETAL Hx Musculoskeletal Disorders: Yes Comment:: amputation left index finger - PSYCH Hx Psych Problems: No - HEMATOLOGY/ONCOLOGY Hx Hematology/Oncology Disorders: No Comment:: . Family Medical History Any Significant Family History?: Yes Hx Cancer: Grandparents Hx Diabetes: Father Hx Heart Disease: Father Hx HTN: Father, Mother, Brother/Sister, Grandparents Physical Exam - General General Appearance: Alert, Oriented x3, Cooperative, Moderate distress Limitations: No limitations - Head Head exam: Atraumatic, Normocephalic, Normal inspection Head exam detail: negative: Abrasion, Contusion, Cheng's sign, General tenderness, Hematoma, Laceration - Eye Eye exam: Normal appearance. negative: Conjunctival injection, Periorbital swelling, Periorbital tenderness, Scleral icterus - ENT Ear exam: negative: Auricular hematoma, Auricular trauma Nasal Exam: negative: Active bleeding, Discharge, Dried blood, Foreign body Mouth exam: negative: Drooling, Laceration, Muffled voice, Tongue elevation - Neck Neck exam: Normal inspection. negative: Meningismus, Tenderness - Respiratory Respiratory exam: Decreased breath sounds, Respiratory distress. negative: Rhonchi, Stridor - Cardiovascular Cardiovascular Exam: Regular rate, Normal rhythm, Normal heart sounds - GI/Abdominal GI/Abdominal exam: Soft. negative: Rebound, Rigid, Tenderness - Rectal Rectal exam: Deferred - exam: Deferred - Extremities Extremities exam: Normal inspection - Back Back exam: Denies: CVA tenderness (R), CVA tenderness (L) - Neurological Neurological exam: Alert, Normal gait, Oriented X3 - Psychiatric Psychiatric exam: Normal affect, Normal mood - Skin Skin exam: Normal color. negative: Abrasion Type of lesion: negative: abrasion Course Vital Signs 04/10/19 23:28 Temperature 98.4 F Pulse Rate 97 H Blood Pressure 131/98 Pulse Ox 97 - Reevaluation(s) Reevaluation #1: 04/10/19 23:40 Patient seen and examined, appears in moderate-severe respiratory distress Patient reports that he cannot tolerate Bipap Respiratory is administering Duoneb followed by Continuous Albuterol for 1 hour. Reevaluation #2: 04/11/19 00:03 Patient was reassessed, trialing Bipap at this time-RR improved to 20 with mildly increased aeration to the bases bilaterally. Patient unable to tolerate straps behind the head due to clostrophobia sensation. CXR was reviewed, c/w hyperinflation, no acute process. Will continue to monitor very closesly. Reevaluation #3: 04/11/19 00:26 Laboratory studies were reviewed and appear grossly unremarkable for an acute process. Reevaluation #4: 04/11/19 00:45 Patient reassessed, continue to improve on Bipap. Patient is laughing, talking with respiratory therapy at the bedside. Will admit for further evaluation. Reevaluation #5: 04/11/19 00:51 EKG: NSR 77 Normal axis, normal intervals No acute ST-T wave changes 04/11/19 4:02 AM patient sleeping with Bipap in place, tolerating well without complications. 04/11/19 06:52 Case was discussed with Ilda Huerta AUDIO/VISUAL MANAGER, will accept admission at this time. Medical Decision Making - Lab Data Result diagrams: 04/10/19 23:30 04/10/19 23:30 Critical Care Time Critical Care Time: Yes Total Critical Care Time: 60 Critical Care Time: Diagnosis and treatment for acute respiratory failure, bronchodilator administration, Bipap administration and management, CXR interpretation, EKG interpretation, laboratory review and assessment, frequent reassessments and updates on results. Disposition Disposition: Admit Clinical Impression: COPD (chronic obstructive pulmonary disease) with acute bronchitis Respiratory failure Qualifiers: Chronicity: acute Respiratory failure complication: hypoxia Qualified Code(s): J96.01 - Acute respiratory failure with hypoxia Disposition: Still a Patient at [facility] Decision to Admit: Admit from ER Decision to Admit Date: 04/11/19 Decision to Admit Time: 00:46 Condition: (2) Stable Time of Disposition: 00:46 Quality - Quality Measures Quality Measures: N/A - Blood Pressure Screening Does Patient Have Any of the Following: Active Dx of HTN Blood Pressure Classification: Hypertensive Reading Systolic Measurement: 131 Diastolic Measurement: 98 Screening for High Blood Pressure: Patient Exclusion, Hx of HTN [G9744] First Hypertensive Follow-up Interventions: Referral to alternative/primary care provider.
[2019-04-11 00:03] LABS: ABSOLUTE NEUTROPHIL COUNT 6.24; BASO % 0.3 % (0-6); EOS % 0.7 % (0-6); GRAN % 65.4 % (47-80); HEMATOCRIT 42.7 % (42.0-52.0); HEMOGLOBIN 14.8 gm/dl (14.0-18.0); LYMPH % 21.1 % (16-45); MEAN CELL VOLUME 92.4 fl (81-97); MEAN CORPUSCULAR HGB CONC 34.7 g/dl (32-36); MEAN PLATELET VOLUME 9.4 fl (7.4-10.4); MONO % 12.5 % (0-9); PLATELET COUNT 348 K/uL (130-400); RED BLOOD COUNT 4.62 M/uL (4.40-5.70); RED CELL DISTRIBUTION WIDTH 12.7 % (11.5-14.5); WHITE BLOOD COUNT W/O DIFF 9.5 K/uL (4.2-12.2)
[2019-04-11 00:12] LABS: BLOOD UREA NITROGEN 8 mg/dL (6-20); CREATININE 0.7 mg/dL (0.7-1.2); EST GLOMERULAR FILTRATION RATE > 60 mL/min
[2019-04-11 00:13] LABS: TOTAL PROTEIN 7.8 g/dL (6.6-8.7)
[2019-04-11 00:15] LABS: GLUCOSE,RANDOM 109 mg/dL (74-109)
[2019-04-11 00:17] LABS: ALT/SGPT 32 U/L (<41); AST/SGOT 26 U/L (10.0-50.0)
[2019-04-11 00:18] LABS: ALB/GLOB RATIO 1.4 (1.1-1.8); ALBUMIN 4.6 g/dL (4.0-5.0); ALKALINE PHOSPHATASE 52 U/L (40-129)
[2019-04-11] MEDS ORDERED: LORAZEPAM 2 MG/ML VIAL IV ONE (00:28)
[2019-04-11] MEDS ORDERED: 0.9 % SODIUM CHLORIDE 1000ML 1,000 ML IV PRN (01:22)
[2019-04-11] MEDS ORDERED: ALBUTEROL SULFATE (0.083%) 2.5 MG/3 ML NEB INH PRN (01:22)
[2019-04-11] MEDS ORDERED: ACETAMINOPHEN 500 MG TABLET PO PRN (01:22)
[2019-04-11] MEDS ORDERED: LORAZEPAM 2 MG/ML VIAL IV PRN (01:22)
[2019-04-11] MEDS: IPRATROPIUM/ALBUTEROL (0.5MG/3MG) NEB INH SCH ×6 (05:42→22:10)
--- NOTE | 2019-04-11 07:19 | RADIOLOGY REPORT ---
EXAM: PORTABLE CHEST HISTORY: DIFFICULTY IN BREATHING. TECHNIQUE: Two mobile upright views of the chest are obtained. Comparison: Portable chest dated 12/07/17. FINDINGS: The heart is not enlarged. No pulmonary venous hypertension is identified. The thoracic aorta is tortuous and atherosclerotic. There are changes of emphysema in the upper lungs. The lungs are hyperinflated. No confluent air space opacity, costophrenic angle blunting or pneumothorax. IMPRESSION: BILATERAL EMPHYSEMA. NO DEFINITE EVIDENCE OF ACUTE INTRATHORACIC PROCESS. JOB NUMBER: [id number] [facility]
[2019-04-11 09:21] LABS: HEMATOCRIT 42.1 % (42.0-52.0); MEAN CELL VOLUME 94.8 fl (81-97); MEAN CORPUSCULAR HEMOGLOBIN 31.5 pg (27-33); MEAN CORPUSCULAR HGB CONC 33.3 g/dl (32-36); MEAN PLATELET VOLUME 9.2 fl (7.4-10.4); PLATELET COUNT 339 K/uL (130-400); RED BLOOD COUNT 4.44 M/uL (4.40-5.70); RED CELL DISTRIBUTION WIDTH 12.8 % (11.5-14.5); WHITE BLOOD COUNT W/O DIFF 7.2 K/uL (4.2-12.2)
[2019-04-11 09:48] LABS: BLOOD UREA NITROGEN 9 mg/dL (6-20); CREATININE 0.8 mg/dL (0.7-1.2); EST GLOMERULAR FILTRATION RATE > 60 mL/min
[2019-04-11 09:51] LABS: GLUCOSE,RANDOM 232 mg/dL (74-109)
[2019-04-11] MEDS ORDERED: QVAR INH SCH (10:00)
[2019-04-11] MEDS ORDERED: AZITHROMYCIN 500 MG TABLET PO SCH (10:00)
[2019-04-11] MEDS ORDERED: ARNUITY (FLUTICASONE FUROATE) 100MCG INH INH SCH (10:00)
[2019-04-11] MEDS: METHYLPREDNISOLONE PF 125MG/VIAL IVP SCH (10:19)
[2019-04-11] MEDS: QVAR INH SCH (10:53)
--- NOTE | 2019-04-11 11:28 | History & Physical ---
History of Present Illness - Date of Service Date of Service for History & Physical: 04/12/19 - History of Present Illness Admitting Diagnosis: COPD. Respiratory failure-Acute History of Present Illness: 58 yo males presents to ER for shortness of breath and chest tightness that started 5 hours before ER arrival. H/O COPD and acute resp failure req int ubation. No recent sick contacts, fever, chills, or productive cough noted. Pt presented to ER in mod/severe resp distress, labored breathing with retractions. Placed in Bipap after ativan and extensive RT assistance. Pt given alb continuous tx x1hour and duo neb tx. 98.4, HR 97, BP 131/98, RR28-32 labored, 97% 2L NC (home O2 baseline) WBC 9.5, Hgb 14.8, Hct 42.7, Plt 348 Na 138, K 4.4, BUN 8, Cr 0.7, Glucose 109 Trop <0.010 CXR no acute process, jose angel emphysema noted 04/11/19 Pt resting comfortably in bipap, sitting up in bed, watching TV. Lung sounds are diminished, tight with little air movement. No rhonci or wheezing noted. Pt is able to talking in partial sentences. Pt was able to eat breakfast but needed to go back on bipap for recovery. Pt is tolerating bipap well, not req ativan and reports wanting a machine for home use. POC IV steroids and bipap with breathing tx. Repeat labs in and re-eval in the am. Pt states he was on trelogy inhaler but went back to QVAR and alb/brovada neb katie for better symptom management. Is on azithomax 3/week for preventative tx bronchitis. PCP [facility] Travel Screening - Travel/Exposure Within Last 30 Days Have you traveled within the last 30 days?: No - Travel/Exposure Within Last Year Have you traveled outside the [place] in the last year?: No - Additonal Travel Details Have you been exposed to anyone with a communicable illness?: No - Travel Symptoms Symptom Screening: None Review of Systems Constitutional: Denies: Chills, Fever, Malaise, Night sweats Eyes: Denies: Eye discharge, Eye pain ENT: Denies: Congestion, Ear pain, Epistaxis Respiratory: Reports: Dyspnea. Denies: Cough Cardiovascular: Reports: Chest pain, Dyspnea on exertion. Denies: Edema Endocrine: Denies: Fatigue, Heat or cold intolerance Gastrointestinal: Denies: Abdominal pain, Nausea, Vomiting Genitourinary: Denies: Incontinence, Retention Musculoskeletal: Denies: Arthralgia, Back pain Skin: Denies: Bruising, Change in color Neurological: Denies: Abnormal gait, Confusion, Headache, Seizure Psychiatric: Denies: Anxiety Hematological/Lymphatic: Denies: Anemia, Blood Clots Past Medical History - SOCIAL HISTORY Smoking Status: Former smoker Alcohol Use: Occasional Drug Use: None - RESPIRATORY Hx Respiratory Disorders: Yes Hx Bronchitis: Yes Hx COPD: Yes Hx Pneumonia: Yes Hx Sleep Apnea: No Comment:: emphysema, pulmonary fibrosis - CARDIOVASCULAR Hx Cardio Disorders: Yes Hx Abnormal EKG: No Hx Chest Pain: No Hx CHF: No Hx Deep Vein Thrombosis: No Hx Heart Attack: No Hx Irregular Heartbeat: No Hx Palpitations: No Comment:: pericarditis in past - NEURO Hx Neuro Disorders: No - GI Hx GI Disorders: Yes Hx Hepatitis/Jaundice: Yes (Hep C) Hx of Polyps: Yes Comment:: . - Hx Genitourinary Disorders: No - ENDOCRINE Hx Endocrine Disorders: No Hx Diabetes: No Hx Thyroid Disease: No - MUSCULOSKELETAL Hx Musculoskeletal Disorders: Yes Comment:: amputation left index finger - PSYCH Hx Psych Problems: No - HEMATOLOGY/ONCOLOGY Hx Hematology/Oncology Disorders: No Comment:: . Family Medical History Any Significant Family History?: Yes Hx Cancer: Grandparents Hx Diabetes: Father Hx Heart Disease: Father Hx HTN: Father, Mother, Brother/Sister, Grandparents H&P Meds/Allergies - Allergies Allergies: Allergies Allergy/AdvReac Type Severity Reaction Status Date / Time No Known Drug Allergies Allergy Verified 12/07/17 20:48 - Home Medications Previous Rx's Medication Instructions Recorded Albuterol Sulfate [Proair Hfa] 1 - 2 puff IH .EVERY 4-6 HOURS PRN 10/25/16 #1 inhaler Acetaminophen [Tylenol 500Mg Tab] 1,000 mg PO Q6H PRN tablet 12/10/17 Azithromycin [Zithromax] 500 mg PO Q24H #7 tab 12/10/17 Ipratropium/Albuterol [Duoneb] 3 ml INH RESP.Q4H.WA #120 ampul.neb 12/10/17 - Active Medications Active Medications: Current Medications Acetaminophen (Tylenol 500mg Tab) 1,000 mg PO Q6H PRN PRN Reason: PAIN - MILD(1-4)/FEVER Last Admin: 04/11/19 02:03 Dose: 1,000 mg Documented by: Albuterol Sulfate (Albuterol Sulfate) 2.5 mg INH RESP.Q2H PRN PRN Reason: DIFFICULTY IN BREATHING Albuterol/Ipratropium (Duoneb) 3 ml INH RESP.Q4H.WA [facility] Last Admin: 04/11/19 10:51 Dose: 3 ml Documented by: Azithromycin (Zithromax) 500 mg PO MoWeFr [facility] Last Admin: 04/11/19 10:19 Dose: 500 mg Documented by: Sodium Chloride () 1,000 mls @ 100 mls/hr IV .Q10H PRN PRN Reason: LARGE VOLUME IV Last Infusion: 04/11/19 11:23 Dose: 0 mls/hr Documented by: Lorazepam (Ativan) 1 mg IV Q2H PRN PRN Reason: ANXIETY Last Admin: 04/11/19 02:59 Dose: 1 mg Documented by: Methylprednisolone Sodium Succinate (Solu-Medrol) 125 mg IVP DAILY [facility] Last Admin: 04/11/19 10:19 Dose: 125 mg Documented by: Patient Own Med: (Qvar Inhaler 8.7g) 2 each INH BID [facility] Last Admin: 04/11/19 10:53 Dose: Not Given Documented by: Physical Exam - Vital Signs Vital Signs: Vital Signs - Last 24 Hrs Temp Pulse Pulse Resp BP BP BP 04/11/19 10:55 80 24 04/11/19 07:10 97.9 F 82 17 132/79 04/11/19 06:00 98.5 F 82 22 123/83 04/11/19 05:58 99 H 04/11/19 05:42 82 20 04/11/19 01:25 97.7 F 80 20 134/93 04/11/19 00:51 67 24 115/92 04/11/19 00:07 86 24 132/83 04/10/19 23:34 86 32 H 04/10/19 23:33 84 28 H 04/10/19 23:28 98.4 F 97 H 131/98 Pulse Ox 04/11/19 10:55 95 04/11/19 07:10 92 L 04/11/19 06:00 94 L 04/11/19 05:58 92 L 04/11/19 05:42 97 04/11/19 01:25 100 04/11/19 00:51 96 04/11/19 00:07 98 04/10/19 23:34 97 04/10/19 23:33 97 04/10/19 23:28 97 - General General Appearance: Alert, Oriented x3, Cooperative, Mild distress Limitations: No limitations - Head Head exam: Atraumatic, Normocephalic, Normal inspection Head exam detail: negative: Abrasion, Contusion, Cheng's sign, General tend erness, Hematoma, Laceration - Eye Eye exam: Normal appearance. negative: Conjunctival injection, Periorbital swelling, Periorbital tenderness, Scleral icterus - ENT Ear exam: negative: Auricular hematoma, Auricular trauma Nasal Exam: negative: Active bleeding, Discharge, Dried blood, Foreign body Mouth exam: negative: Drooling, Laceration, Muffled voice, Tongue elevation - Neck Neck exam: Normal inspection. negative: Meningismus, Tenderness - Respiratory Respiratory exam: Accessory muscle use, Decreased breath sounds, Respiratory distress. negative: Rhonchi, Stridor - Cardiovascular Cardiovascular Exam: Regular rate, Normal rhythm, Normal heart sounds Peripheral Pulses: 3+: Radial (R), Radial (L), Dorsalis Pedis (R), Dorsalis Pedis (L) - GI/Abdominal GI/Abdominal exam: Soft. negative: Rebound, Rigid, Tenderness - Rectal Rectal exam: Deferred - exam: Deferred - Extremities Extremities exam: Normal inspection - Back Back exam: Denies: CVA tenderness (R), CVA tenderness (L) - Neurological Neurological exam: Alert, Normal gait, Oriented X3 - Psychiatric Psychiatric exam: Normal affect, Normal mood - Skin Skin exam: Normal color. negative: Abrasion Type of lesion: negative: abrasion Results - Labs Result Diagrams: 04/11/19 08:50 04/11/19 08:50 Labs Last 24 Hours: Laboratory Results - last 24 hr 04/10/19 04/10/19 04/11/19 23:30 23:30 08:50 WBC 9.5 7.2 RBC 4.62 4.44 Hgb 14.8 14.0 Hct 42.7 42.1 MCV 92.4 94.8 MCH 32.0 31.5 MCHC 34.7 33.3 RDW 12.7 12.8 Plt Count 348 339 MPV 9.4 9.2 Gran % 65.4 Neutrophils % 96.0 H Lymphocytes % 21.1 Monocytes % 12.5 H Eosinophils % 0.7 Not Reportable Basophils % 0.3 Not Reportable Absolute Neutrophils 6.24 Not Reportable Lymphocytes 3.0 L Monocytes 1.0 Sodium 138 Potassium 4.4 Chloride 100 Carbon Dioxide 22.0 Anion Gap 16.0 BUN 8 Creatinine 0.7 Estimated GFR > 60 Random Glucose 109 Calcium 9.3 Total Bilirubin 0.30 AST 26 ALT 32 Alkaline Phosphatase 52 Troponin T < 0.010 Total Protein 7.8 Albumin 4.6 Globulin 3.2 Albumin/Globulin Ratio 1.4 04/11/19 08:50 WBC RBC Hgb Hct MCV MCH MCHC RDW Plt Count MPV Gran % Neutrophils % Lymphocytes % Monocytes % Eosinophils % Basophils % Absolute Neutrophils Lymphocytes Monocytes Sodium 138 Potassium 4.0 Chloride 99 Carbon Dioxide 21.0 L Anion Gap 18.0 H BUN 9 Creatinine 0.8 Estimated GFR > 60 Random Glucose 232 H Calcium 9.1 Total Bilirubin AST ALT Alkaline Phosphatase Troponin T Total Protein Albumin Globulin Albumin/Globulin Ratio VTE H&P Assessment - Risk for VTE Risk for VTE: Yes Risk Level: Moderate Risk Assessment Date: 04/11/19 Risk Assessment Time: 10:37 VTE Orders Placed or Will Be Placed: Yes Plan - Inpatient Certification Inpatient Certification: Admit to inpatient care: Based on my medical assessment, after consideration of patient's risk factors (age, co-morbidities and patient presenting symptoms and acuity), I expect that this patient will remain in the hospital greater than or equal to two midnights and that the services needed warrant inpatient care because: Patient Risk Factors: resp failure, hypoxia Estimated length of stay: The patient may reasonably be expected to be discharged or transferred to a hospital within 96 hours after admission to [facility]. Services needed: bipap, neb treatments, IVP medications, respiratory therapy assessments Post hospital care (if known): [] I certify that my determination is in accordance with my understanding of Medicare requirements for reasonable and necessary inpatient services. 04/11/19 13:49 - Detailed Diagnosis and Plan (1) COPD with exacerbation Current Visit: Yes Status: Acute Base Code: J44.1 - CHRONIC OBSTRUCTIVE PULMONARY DISEASE W (ACUTE) EXACERBATION Comment: 04/11/19 -pt req Bipap through the night, after meals and limited ambulations -continue Bipap as tolerated, ativan PRN for anxiety -solumedrol 125mg IVP -azithromax 3/week continued -CXR shows no acute process, bilateral emphysema (2) Respiratory failure Current Visit: Yes Status: Acute Qualifiers: Chronicity: acute Respiratory failure complication: hypoxia Qualified Code(s): J96.01 - Acute respiratory failure with hypoxia Base Code: J96.90 - RESPIRATORY FAILURE, UNSP, UNSP W HYPOXIA OR HYPERCAPNIA Comment: 04/11/19 -continue Bipap, steroids, and neb tx -monitor work of breathing and o2 sats -continue cardiac monitoring (3) DVT prophylaxis Current Visit: No Status: Acute Base Code: [id number] - Comment: 04/11/19 start if present more than 24 hrs - lovenox 40mg/QD (4) Full code status Current Visit: Yes Status: Acute Base Code: Z78.9 - OTHER SPECIFIED HEALTH STATUS Comment: 04/11/19 full code
[2019-04-11] MEDS ORDERED: LORAZEPAM 0.5 MG TABLET PO PRN (21:28)
[2019-04-11] MEDS: LORAZEPAM 0.5 MG TABLET PO PRN (21:41)
[2019-04-12] MEDS: IPRATROPIUM/ALBUTEROL (0.5MG/3MG) NEB INH SCH ×5 (06:26→22:07)
[2019-04-12] MEDS: METHYLPREDNISOLONE PF 125MG/VIAL IVP SCH (09:54)
[2019-04-12] MEDS ORDERED: ENOXAPARIN 40 MG/0.4 ML SYR SQ SCH (10:45)
--- NOTE | 2019-04-12 10:45 | Physician Progress Note ---
Subjective - Date Date of Physician Progress Note: 04/12/19 - Subjective Subjective Comment: 04/12/19 pt continues to request bipap at HS, after meals and after walking -reports work of breathing is returning to baseline Objective - Vital Signs Vital Signs: Vital Signs - Last 24 Hrs Temp Pulse Pulse Resp BP Pulse Ox 04/12/19 10:02 86 28 H 98 04/12/19 10:01 84 28 H 98 04/12/19 07:45 24 04/12/19 06:26 66 18 94 L 04/12/19 05:00 98.8 F 59 L 24 130/76 97 04/11/19 22:12 76 18 93 L 04/11/19 21:00 98.1 F 84 26 H 137/77 94 L 04/11/19 18:33 86 20 04/11/19 17:00 98.6 F 87 16 141/73 96 04/11/19 14:18 84 22 04/11/19 11:00 98.3 F 94 H 18 132/77 95 04/11/19 10:55 80 24 95 - General General Appearance: Alert, Oriented x3, Cooperative, Mild distress Limitations: No limitations - Head Head exam: Atraumatic, Normocephalic, Normal inspection Head exam detail: negative: Abrasion, Contusion, Cheng's sign, General tenderness, Hematoma, Laceration - Eye Eye exam: Normal appearance. negative: Conjunctival injection, Periorbital swelling, Periorbital tenderness, Scleral icterus - ENT Ear exam: negative: Auricular hematoma, Auricular trauma Nasal Exam: negative: Active bleeding, Discharge, Dried blood, Foreign body Mouth exam: negative: Drooling, Laceration, Muffled voice, Tongue elevation - Neck Neck exam: Normal inspection. negative: Meningismus, Tenderness - Respiratory Respiratory exam: Accessory muscle use, Decreased breath sounds, Prolonged expiratory. negative: Respiratory distress, Rhonchi, Stridor - Cardiovascular Cardiovascular Exam: Regular rate, Normal rhythm, Normal heart sounds Peripheral Pulses: 3+: Radial (R), Radial (L), Dorsalis Pedis (R), Dorsalis P kenny (L) - GI/Abdominal GI/Abdominal exam: Soft. negative: Rebound, Rigid, Tenderness - Rectal Rectal exam: Deferred - exam: Deferred - Extremities Extremities exam: Normal inspection - Back Back exam: Denies: CVA tenderness (R), CVA tenderness (L) - Neurological Neurological exam: Alert, Normal gait, Oriented X3 - Psychiatric Psychiatric exam: Normal affect, Normal mood - Skin Skin exam: Normal color. negative: Abrasion Type of lesion: negative: abrasion Assessment and Plan - Assessment and Plan (1) COPD with exacerbation Current Visit: Yes Status: Acute Base Code: J44.1 - CHRONIC OBSTRUCTIVE PULMONARY DISEASE W (ACUTE) EXACERBATION Comment: 04/12/19 -pt req bipap for symptom mgt but appears in significantly less resp stress -continue bipap as tolertated, transistion IV steroids to PO -consider d/c tomorrow if symptoms are controlled on PO steroids, rest and neb tx 04/11/19 -pt req Bipap through the night, after meals and limited ambulations -continue Bipap as tolerated, ativan PRN for anxiety -solumedrol 125mg IVP -azithromax 3/week continued -CXR shows no acute process, bilateral emphysema (2) Respiratory failure Current Visit: Yes Status: Acute Qualifiers: Chronicity: acute Respiratory failure complication: hypoxia Qualified Code(s): J96.01 - Acute respiratory failure with hypoxia Base Code: J96.90 - RESPIRATORY FAILURE, UNSP, UNSP W HYPOXIA OR HYPERCAPNIA Comment: 04/12/19 -symptoms are improving -transition to PO steroids and probable d/c tomorrow 04/11/19 -continue Bipap, steroids, and neb tx -monitor work of breathing and o2 sats -continue cardiac monitoring (3) DVT prophylaxis Current Visit: No Status: Acute Base Code: [id number] - Comment: 04/12/19 -lovenox 40mg QD SQ 04/11/19 start if present more than 24 hrs - lovenox 40mg/QD (4) Full code status Current Visit: Yes Status: Acute Base Code: Z78.9 - OTHER SPECIFIED HEALTH STATUS Comment: 04/12/19 full code Results - Labs Result Diagrams: 04/11/19 08:50 04/11/19 08:50 DVT/PE Assessment - Risk for VTE Risk for VTE: No Risk Level: Moderate Risk Assessment Date: 04/11/19 Risk Assessment Time: 10:37 VTE Orders Placed or Will Be Placed: Yes - Active Medicaitons Current Medications: Current Medications Acetaminophen (Tylenol 500mg Tab) 1,000 mg PO Q6H PRN PRN Reason: PAIN - MILD(1-4)/FEVER Last Admin: 04/11/19 02:03 Dose: 1,000 mg Documented by: Albuterol Sulfate (Albuterol Sulfate) 2.5 mg INH RESP.Q2H PRN PRN Reason: DIFFICULTY IN BREATHING Albuterol/Ipratropium (Duoneb) 3 ml INH RESP.Q4H.WA [facility] Last Admin: 04/12/19 09:59 Dose: 3 ml Documented by: Azithromycin (Zithromax) 500 mg PO MoWeFr [facility] Last Admin: 04/11/19 10:19 Dose: 500 mg Documented by: Enoxaparin Sodium (Lovenox) 40 mg SQ DAILY [facility] Sodium Chloride () 1,000 mls @ 100 mls/hr IV .Q10H PRN PRN Reason: LARGE VOLUME IV Last Infusion: 04/11/19 11:23 Dose: 0 mls/hr Documented by: Lorazepam (Ativan) 1 mg PO Q8H PRN PRN Reason: ANXIETY Last Admin: 04/11/19 21:41 Dose: 1 mg Documented by: Patient Own Med: (Qvar Inhaler 8.7g) 2 each INH BID [facility] Last Admin: 04/11/19 10:53 Dose: Not Given Documented by: Prednisone (Prednisone 20mg) 40 mg PO DAILYWM [facility] AMI Plan - Labs Result Diagrams: 04/11/19 08:50 04/11/19 08:50
[2019-04-12] MEDS: LORAZEPAM 0.5 MG TABLET PO PRN ×2 (12:33→22:21)
[2019-04-13] MEDS: IPRATROPIUM/ALBUTEROL (0.5MG/3MG) NEB INH SCH (06:05)
[2019-04-13 06:16] LABS: BASO % 0.1 % (0-6); EOS % 0.1 % (0-6); GRAN % 72.5 % (47-80); HEMATOCRIT 42.7 % (42.0-52.0); HEMOGLOBIN 13.9 gm/dl (14.0-18.0); LYMPH % 16.6 % (16-45); MEAN CELL VOLUME 96.6 fl (81-97); MEAN CORPUSCULAR HEMOGLOBIN 31.4 pg (27-33); MEAN CORPUSCULAR HGB CONC 32.6 g/dl (32-36); MEAN PLATELET VOLUME 9.2 fl (7.4-10.4); MONO % 10.7 % (0-9); PLATELET COUNT 322 K/uL (130-400); RED BLOOD COUNT 4.42 M/uL (4.40-5.70); RED CELL DISTRIBUTION WIDTH 13.3 % (11.5-14.5); WHITE BLOOD COUNT W/O DIFF 10.6 K/uL (4.2-12.2)
[2019-04-13 06:30] LABS: BLOOD UREA NITROGEN 13 mg/dL (6-20); CREATININE 0.7 mg/dL (0.7-1.2); EST GLOMERULAR FILTRATION RATE > 60 mL/min; GLUCOSE,RANDOM 104 mg/dL (74-109)
[2019-04-13] MEDS ORDERED: PREDNISONE 20 MG TAB PO SCH (08:00)
[2019-04-13] MEDS: QVAR INH SCH (08:11)
--- NOTE | 2019-04-13 09:20 | Discharge Summary ---
Providers Discharge Summary Date: 04/13/19 Date of admission: 04/11/19 01:14 Expected Date of Discharge: 04/13/19 Attending physician: JESENIA GILES Primary care physician: Nick Lemon Physical Exam - Vital Signs Vital Signs: Vital Signs - Last 24 Hrs Temp Pulse Pulse Resp BP BP Pulse Ox 04/13/19 07:00 98.8 F 66 16 142/90 96 04/13/19 06:06 79 20 94 L 04/13/19 03:26 72 22 98 04/12/19 22:20 98.8 F 65 28 H 126/78 97 04/12/19 22:09 78 18 94 L 04/12/19 17:51 84 26 H 96 04/12/19 17:48 80 28 H 96 04/12/19 17:00 99 F 72 28 H 142/78 96 04/12/19 14:27 85 24 04/12/19 13:00 98.4 F 72 28 H 122/78 95 04/12/19 10:02 86 28 H 98 04/12/19 10:01 84 28 H 98 - General General Appearance: Alert, Oriented x3, Cooperative, No acute distress Limitations: No limitations - Head Head exam: Atraumatic, Normocephalic, Normal inspection Head exam detail: negative: Abrasion, Contusion, Cheng's sign, General tenderness, Hematoma, Laceration - Eye Eye exam: Normal appearance. negative: Conjunctival injection, Periorbital swelling, Periorbital tenderness, Scleral icterus - ENT Ear exam: negative: Auricular hematoma, Auricular trauma Nasal Exam: negative: Active bleeding, Discharge, Dried blood, Foreign body Mouth exam: negative: Drooling, Laceration, Muffled voice, Tongue elevation - Neck Neck exam: Normal inspection. negative: Meningismus, Tenderness - Respiratory Respiratory exam: Accessory muscle use, Decreased breath sounds, Prolonged expiratory. negative: Respiratory distress, Rhonchi, Stridor - Cardiovascular Cardiovascular Exam: Regular rate, Normal rhythm, Normal heart sounds Peripheral Pulses: 3+: Radial (R), Radial (L), Dorsalis Pedis (R), Dorsalis Pedis (L) - GI/Abdominal GI/Abdominal exam: Soft. negative: Rebound, Rigid, Tenderness - Rectal Rectal exam: Deferred - exam: Deferred - Extremities Extremities exam: Normal inspection - Back Back exam: Denies: CVA tenderness (R), CVA tenderness (L) - Neurological Neurological exam: Alert, Normal gait, Oriented X3 - Psychiatric Psychiatric exam: Normal affect, Normal mood - Skin Skin exam: Normal color. negative: Abrasion Type of lesion: negative: abrasion Hospitalization - Hospitalization Admission Diagnosis: COPD. Respiratory failure-Acute - Problem List/Discharge Diagnosis (1) COPD with exacerbation Current Visit: Yes Status: Acute Base Code: J44.1 - CHRONIC OBSTRUCTIVE PULMONARY DISEASE W (ACUTE) EXACERBATION Comment: 04/13/19 -pt has improved lungs sound but still dim, no wheezes or rhonchi -pt reporting baseline SOB with activity and states he feels comfortable and wants to go home -sleep study to be ordered by PCP for possible home bipap system -f/u PCP in 1 week 04/12/19 -pt req bipap for symptom mgt but appears in significantly less resp stress -continue bipap as tolertated, transistion IV steroids to PO -consider d/c tomorrow if symptoms are controlled on PO steroids, rest and neb tx 04/11/19 -pt req Bipap through the night, after meals and limited ambulations -continue Bipap as tolerated, ativan PRN for anxiety -solumedrol 125mg IVP -azithromax 3/week continued -CXR shows no acute process, bilateral emphysema (2) Respiratory failure Current Visit: Yes Status: Acute Discharge Diagnosis: Chronicity: acute Respiratory failure complication: hypoxia Qualified Code(s): J96.01 - Acute respiratory failure with hypoxia Base Code: J96.90 - RESPIRATORY FAILURE, UNSP, UNSP W HYPOXIA OR HYPERCAPNIA Comment: 04/13/19 -pt reports back to baseline -d/c, f/u PCP in 1 week, ER for return or worsening symptoms 04/12/19 -symptoms are improving -transition to PO steroids and probable d/c tomorrow 04/11/19 -continue Bipap, steroids, and neb tx -monitor work of breathing and o2 sats -continue cardiac monitoring (3) DVT prophylaxis Current Visit: No Status: Acute Base Code: [id number] - Comment: 04/12/19 -lovenox 40mg QD SQ 04/11/19 start if present more than 24 hrs - lovenox 40mg/QD (4) Full code status Current Visit: Yes Status: Acute Base Code: Z78.9 - OTHER SPECIFIED HEALTH STATUS Comment: 04/13/19 full code - Hospitalization Course Disposition: Home, Self-Care Hospital Course: 58 yo males presents to ER for shortness of breath and chest tightness that started 5 hours before ER arrival. H/O COPD and acute resp failure req intubation. No recent sick contacts, fever, chills, or productive cough noted. Pt presented to ER in mod/severe resp distress, labored breathing with retractions. Placed in Bipap after ativan and extensive RT assistance. Pt given alb continuous tx x1hour and duo neb tx. 98.4, HR 97, BP 131/98, RR28-32 labored, 97% 2L NC (home O2 baseline) WBC 9.5, Hgb 14.8, Hct 42.7, Plt 348 Na 138, K 4.4, BUN 8, Cr 0.7, Glucose 109 Trop <0.010 CXR no acute process, jose angel emphysema noted 04/11/19 Pt resting comfortably in bipap, sitting up in bed, watching TV. Lung sounds are diminished, tight with little air movement. No rhonci or wheezing noted. Pt is able to talking in partial sentences. Pt was able to eat breakfast but needed to go back on bipap for recovery. Pt is tolerating bipap well, not req ativan and reports wanting a machine for home use. POC IV steroids and bipap with breathing tx. Repeat labs in and re-eval in the am. Pt states he was on trelogy inhaler but went back to QVAR and alb/brovada neb katie for better symptom management. Is on azithomax 3/week for preventative tx bronchitis. PCP [facility] Procedures: Imaging and X-Rays 04/10/19 23:39 CHEST 1 VIEW [RAD] Stat Cardiology Procedures 04/10/19 23:33 EKG NOW Abnormal Labs: Abnormal Lab Results 04/10/19 04/11/19 04/11/19 Range/Units 23:30 08:50 08:50 Hgb (14.0-18.0) gm/dl Neutrophils % 96.0 H (47-80) % Monocytes % 12.5 H (0-9) % Lymphocytes 3.0 L (16-45) % Carbon Dioxide 21.0 L (22-29) mmol/L Anion Gap 18.0 H (7-16) Random Glucose 232 H (74-109) mg/dL 04/13/19 Range/Units 06:00 Hgb 13.9 L (14.0-18.0) gm/dl Neutrophils % (47-80) % Monocytes % 10.7 H (0-9) % Lymphocytes (16-45) % Carbon Dioxide (22-29) mmol/L Anion Gap (7-16) Random Glucose (74-109) mg/dL Condition at Discharge: (2) Stable Discharge Medications - Discharge Medications Prescriptions: Albuterol Sulfate 0.083% [Neb] [Albuterol Sulfate] 2.5 mg INH RESP.Q2H PRN 15 Days #60 nebulization solution PRN Reason: Difficulty In Breathing Prednisone [Prednisone 20Mg] 40 mg PO DAILYWM 4 Days #8 tab Home Medications: Ambulatory Orders Albuterol Sulfate [Proair Hfa] 1 - 2 puff IH .EVERY 4-6 HOURS PRN #1 inhaler 10/25/16 [Last Taken 04/10/19] Beclomethasone Dipropionate [Qvar 40Mcg/100 Actuat Inhaler] 2 puff INH BID 03/16/17 [Last Taken 04/10/19] Acetaminophen [Tylenol 500Mg Tab] 1,000 mg PO Q6H PRN tablet 12/10/17 [Last Taken Unknown] Azithromycin [Zithromax] 500 mg PO Q24H #7 tab 12/10/17 [Last Taken 04/13/19] Ipratropium/Albuterol [Duoneb] 3 ml INH RESP.Q4H.WA #120 ampul.neb 12/10/17 [Last Taken 04/10/19] Albuterol Sulfate 0.083% [Neb] [Albuterol Sulfate] 2.5 mg INH RESP.Q2H PRN 15 Days #60 nebulization solution 04/13/19 [Last Taken Unknown] Ipratropium/Albuterol [Duoneb] 3 ml INH RESP.Q4H.WA ampul.neb 04/13/19 [Last Taken Unknown] Prednisone [Prednisone 20Mg] 40 mg PO DAILYWM 4 Days #8 tab 04/13/19 [Last Taken Unknown] Discharge Plan - Discharge Instructions Activity at Discharge: Increase Activity as Tolerated Instructions: Pulmonary Fibrosis (DC), COPD (Chronic Obstructive Pulmonary Disease) (DC) Quality Measures - Quality Measures Quality Measures: Documentation of Current Medications in Medical Record, Screening for High Blood Pressure and F/U Documented - Current Medications Quality Measure: Measure #130: Documentation of Current Medications Documentation of Current Medications: <Current Medications Documented/Reviewed> [G8427] - Blood Pressure Screening Quality Measure: Screening for High Blood Pressure and Follow-Up Documented Does Patient Have Any of the Following: No Blood Pressure Classification: Hypertensive Reading Systolic Measurement: 131 Diastolic Measurement: 98 Screening for High Blood Pressure: < First Hypertensive BP, F/U Documented > [G8950] First Hypertensive Follow-up Interventions: Referral to alternative/primary care provider. - Elder Abuse Suspicion Index EASI Reference Information: Dona NIETO, Nell C, Joseph D, Lay Sherwood.Development and validation of a tool to assist physicians identification of elder abuse: The Elder Abuse Suspicion Index (EASI ). Journal of Elder Abuse and Neglect, 2008; 20 (3): 276-300.
== END 2019-04-13 10:07 | disposition home or self-care (01) | DRG 189 ==
LOC: ER 23:24 → MEDSURG 04-11 01:14
PROVIDERS: ADMIT Internal Medicine; ATTEND Internal Medicine
DX: J96.01 Acute respiratory failure with hypoxia (principal); J44.1 Chronic obstructive pulmonary disease with (acute) exacerbation; J43.9 Emphysema, unspecified; J84.10 Pulmonary fibrosis, unspecified; B19.20 Unspecified viral hepatitis C without hepatic coma; Z99.81 Dependence on supplemental oxygen; Z87.891 Personal history of nicotine dependence
CPT/HCPCS: 71045; 80048; 80053; 83036; 84484; 85025; 85027; 93005; 93010; 94640; 94660; 94760; 94761; 96374; 96375; 99223; 99239; 99291; J1650; J2930; J7512; J7613

== ENCOUNTER 2019-10-27 16:45 | Emergency (ER) | payer BC ==
[2019-10-27] MEDS ORDERED: IPRATROPIUM/ALBUTEROL (0.5MG/3MG) NEB INH ONE (16:54)
[2019-10-27] MEDS ORDERED: METHYLPREDNISOLONE PF 125MG/VIAL IVP ONE (16:54)
[2019-10-27 17:12] LABS: ABSOLUTE NEUTROPHIL COUNT 6.96; BASO % 0.1 % (0-6); HEMATOCRIT 44.6 % (42.0-52.0); HEMOGLOBIN 14.5 gm/dl (14.0-18.0); LYMPH % 4.7 % (16-45); MEAN CELL VOLUME 93.1 fl (81-97); MEAN CORPUSCULAR HEMOGLOBIN 30.3 pg (27-33); MEAN CORPUSCULAR HGB CONC 32.5 g/dl (32-36); MONO % 1.7 % (0-9); PLATELET COUNT 346 K/uL (130-400); RED BLOOD COUNT 4.79 M/uL (4.40-5.70); RED CELL DISTRIBUTION WIDTH 12.7 % (11.5-14.5); WHITE BLOOD COUNT W/O DIFF 7.5 K/uL (4.2-12.2)
[2019-10-27] MEDS ORDERED: ALBUTEROL SULFATE 0.5% 5 MG/ML BTL 20ML INH SCH (17:15)
[2019-10-27 17:19] LABS: ARTERIAL BLOOD GAS PCO2 41.3 mmHg (35-48); ARTERIAL BLOOD GAS pH 7.42 (7.35-7.45)
[2019-10-27] MEDS ORDERED: ALBUTEROL (0.5% CONCENTRATED) 2.5 MG/0.5 ML VIAL.NEB INH ONE (17:19)
[2019-10-27 17:22] LABS: BLOOD UREA NITROGEN 13 mg/dL (8-23); CREATININE 1.1 mg/dL (0.7-1.2); EST GLOMERULAR FILTRATION RATE > 60 mL/min
[2019-10-27 17:25] LABS: GLUCOSE,RANDOM 152 mg/dL (74-109)
[2019-10-27 17:25] LABS: ALLEN TEST PASS
[2019-10-27 17:29] LABS: INFLUENZA A NEGATIVE (NEGATIVE)
[2019-10-27 17:30] LABS: INFLUENZA B NEGATIVE (NEGATIVE); NTpro B-NATRIURETIC PEPTIDE 83.05 pg/mL (<125); PLATELET ESTIMATE NORMAL (NORMAL)
[2019-10-27 17:31] LABS: TOXIC GRANULATION 1+
--- NOTE | 2019-10-27 17:44 | Emergency Department Record ---
History of Present Illness - General Chief Complaint: Shortness of breath Stated Complaint: ELINOR Time Seen by Provider: 10/27/19 16:54 Source: Patient, Family Mode of Arrival: Ambulatory Limitations: No limitations - History of Present Illness Initial Comments: pt comes in c/o increased sob for 4days. pt wears 2ltrs of O2 at home and has increased it to 2.5 ltrs. his sats have been down to the low 80s at home. his valet cashier wanted to admit him 4 days ago but he refused because he wanted to avoid exposure to the flu. he is on tapering steroids. MD Complaint: Cough, Shortness of breath Onset/Timin -: Week(s) Severity: Moderate Consistency: Constant Improves With: Nothing Worsens With: Nothing Known History Of: COPD, Other Associated Symptoms: Cough, Sputum production Treatments Prior to Arrival: Bronchodilator, Oxygen - Related Data Home Oxygen Amount: 2 Liters Home Medications Medication Instructions Recorded Confirmed Last Taken Atorvastatin Calcium 20 mg PO QHS 10/27/19 10/27/19 Unknown Budesonide 0.5 mg IH BID 10/27/19 10/27/19 10/27/19 Cholecalciferol (Vitamin D3) 2,000 unit PO DAILY 10/27/19 10/27/19 Unknown [Vitamin D3] Doxycycline Hyclate 100 mg PO BID 10/27/19 10/27/19 10/27/19 Formoterol Fumarate [Perforomist] 20 mcg IH BID 10/27/19 10/27/19 10/27/19 Prednisone [Prednisone 20Mg] 20 mg PO DAILY 10/27/19 10/27/19 10/27/19 Sertraline HCl [Zoloft] 25 mg PO QHS 10/27/19 10/27/19 Unknown Previous Rx's Medication Instructions Recorded Albuterol Sulfate [Proair Hfa] 1 - 2 puff IH .EVERY 4-6 HOURS PRN 10/25/16 #1 inhaler Albuterol Sulfate 0.083% [Neb] 2.5 mg INH RESP.Q2H PRN 15 Days 04/13/19 [Albuterol Sulfate] #60 nebulization solution Ipratropium/Albuterol [Duoneb] 3 ml INH RESP.Q4H.WA ampul.neb 04/13/19 Allergies Allergy/AdvReac Type Severity Reaction Status Date / Time No Known Drug Allergies Allergy Verified 10/27/19 16:54 Travel Screening - Travel/Exposure Within Last 30 Days Have you traveled within the last 30 days?: No Review of Systems Reviewed: No additional complaints except as noted below Constitutional: Reports: As per HPI. Denies: Chills, Fever, Malaise, Night sweats, Weakness, Weight change Eyes: Reports: As per HPI. Denies: Eye discharge, Eye pain, Photophobia, Vision change ENT: Reports: As per HPI. Denies: Congestion, Dental pain, Ear pain, Epistaxis, Hearing loss, Throat pain Respiratory: Reports: As per HPI, Cough, Dyspnea. Denies: Hemoptysis, Stridor, Wheezes Cardiovascular: Reports: As per HPI. Denies: Arrhythmia, Chest pain, Dyspnea on exertion, Edema, Murmurs, Orthopnea, Palpitations, Paroxysmal nocturnal dyspnea, Rheumatic Fever, Syncope Endocrine: Reports: As per HPI. Denies: Fatigue, Heat or cold intolerance, Polydipsia, Polyuria Gastrointestinal: Reports: As per HPI. Denies: Abdominal pain, Constipation, Diarrhea, Hematemesis, Hematochezia, Melena, Nausea, Vomiting Genitourinary: Reports: As per HPI. Denies: Dysuria, Frequency, Hematuria, Incontinence, Retention, Testicular pain, Testicular mass, Urgency Musculoskeletal: Reports: As per HPI. Denies: Arthralgia, Back pain, Gout, Joint swelling, Myalgia, Neck pain Skin: Reports: As per HPI. Denies: Bruising, Change in color, Change in hair/nails, Lesions, Pruritus, Rash Neurological: Reports: As per HPI. Denies: Abnormal gait, Confusion, Headache, Numbness, Paresthesias, Seizure, Tingling, Tremors, Vertigo, Weakness Psychiatric: Reports: As per HPI. Denies: Anxiety, Auditory hallucinations, Depression, Homicidal thoughts, Suicidal thoughts, Visual hallucinations Hematological/Lymphatic: Reports: As per HPI. Denies: Anemia, Blood Clots, Easy bleeding, Easy bruising, Swollen glands Past Medical History - SOCIAL HISTORY Smoking Status: Former smoker Alcohol Use: None Drug Use: None - RESPIRATORY Hx Respiratory Disorders: Yes Hx Bronchitis: Yes Hx COPD: Yes Hx Pneumonia: Yes Hx Sleep Apnea: No Comment:: emphysema, pulmonary fibrosis - CARDIOVASCULAR Hx Cardio Disorders: Yes Hx Abnormal EKG: No Hx Chest Pain: No Hx CHF: No Hx Deep Vein Thrombosis: No Hx Heart Attack: No Hx Irregular Heartbeat: No Hx Palpitations: No Comment:: pericarditis in past - NEURO Hx Neuro Disorders: No - GI Hx GI Disorders: Yes Hx Hepatitis/Jaundice: Yes (Hep C) Hx of Polyps: Yes Comment:: . - Hx Genitourinary Disorders: No - ENDOCRINE Hx Endocrine Disorders: No Hx Diabetes: No Hx Thyroid Disease: No - MUSCULOSKELETAL Hx Musculoskeletal Disorders: Yes Comment:: amputation left index finger - PSYCH Hx Psych Problems: No - HEMATOLOGY/ONCOLOGY Hx Hematology/Oncology Disorders: No Comment:: . Family Medical History Any Significant Family History?: Yes Hx Cancer: Grandparents Hx Diabetes: Father Hx Heart Disease: Father Hx HTN: Father, Mother, Brother/Sister, Grandparents Physical Exam - General General Appearance: Alert, Oriented x3, Cooperative, Moderate distress - Head Head exam: Normal inspection - Eye Eye exam: Normal appearance, PERRL, EOMI Pupils: Normal accommodation - ENT ENT exam: Normal exam, Mucous membranes moist, Normal external ear exam, Normal orophraynx Ear exam: Normal external inspection. negative: External canal tenderness Nasal Exam: Normal inspection. negative: Discharge, Sinus tenderness Mouth exam: Normal external inspection, Tongue normal Teeth exam: Normal inspection. negative: Dental caries Throat exam: Normal inspection. negative: Tonsillar erythema, Tonsillar exudate - Neck Neck exam: Normal inspection, Full ROM. negative: Tenderness - Respiratory Respiratory exam: Accessory muscle use, Decreased breath sounds, Respiratory distress - Cardiovascular Cardiovascular Exam: Regular rate, Normal rhythm, Normal heart sounds - GI/Abdominal GI/Abdominal exam: Soft, Normal bowel sounds. negative: Tenderness - Rectal Rectal exam: Deferred - exam: Deferred - Extremities Extremities exam: Normal inspection, Full ROM, Normal capillary refill. negative: Tenderness - Back Back exam: Reports: Normal inspection, Full ROM. Denies: Muscle spasm, Rash noted, Tenderness - Neurological Neurological exam: Alert, CN II-XII intact, Normal gait, Oriented X3 - Psychiatric Psychiatric exam: Normal affect, Normal mood - Skin Skin exam: Dry, Intact, Normal color, Warm Course Vital Signs 10/27/19 10/27/19 10/27/19 16:50 17:05 17:13 Temperature 98.4 F Pulse Rate 97 H 85 Respiratory 24 18 Rate Blood Pressure 181/106 Pulse Ox 96 96 94 L - Reevaluation(s) Reevaluation #1: 10/27/19 18:42 pt has improved Reevaluation #2: 10/27/19 18:51 pt is attepting to get a lung transplant Reevaluation #3: 10/27/19 18:53 pt was d/w dr amador who wanted pt transferred Medical Decision Making - Lab Data Result diagrams: 10/27/19 16:50 10/27/19 16:50 Lab Results 10/27/19 10/27/19 10/27/19 Range/Units 16:50 16:50 16:50 WBC 7.5 (4.2-12.2) K/uL RBC 4.79 (4.40-5.70) M/uL Hgb 14.5 (14.0-18.0) gm/dl Hct 44.6 (42.0-52.0) % MCV 93.1 (81-97) fl MCH 30.3 (27-33) pg MCHC 32.5 (32-36) g/dl RDW 12.7 (11.5-14.5) % Plt Count 346 (130-400) K/uL MPV 9.0 (7.4-10.4) fl Neutrophils % 90.0 H (47-80) % Band Neutrophils % 1.0 (0-5) % Lymphocytes % 4.7 L (16-45) % Monocytes % 1.7 (0-9) % Eosinophils % 0.0 (0-6) % Basophils % 0.1 (0-6) % Absolute Neutrophils 6.96 Lymphocytes 7.0 L (16-45) % Monocytes 2.0 (0-9) % Toxic Granulation 1+ Platelet Estimate Normal (NORMAL) RBC Morphology Normal Puncture Site pCO2 (35-48) mmHg pO2 (83-108) mmHg HCO3 Oxyhemoglobin ABG pH (7.35-7.45) ABG O2 Saturation ABG Base Excess Frantz Test Carboxyhemoglobin Methemoglobin Actual Respiration Rate (10-18) /MIN FiO2 Sodium 138 (136-145) mmol/L Potassium 4.4 (3.4-4.5) mmol/L Chloride 98 (98-107) mmol/L Carbon Dioxide 24.0 (22-29) mmol/L Anion Gap 16.0 (7-16) BUN 13 (8-23) mg/dL Creatinine 1.1 (0.7-1.2) mg/dL Estimated GFR > 60 mL/min Random Glucose 152 H (74-109) mg/dL Calcium 10.2 (8.8-10.2) mg/dL NT-Pro-B Natriuret Pep 83.05 (<125) pg/mL Influenza Type A Ag Negative (NEGATIVE) Influenza Type B Ag Negative (NEGATIVE) 10/27/19 Range/Units 17:02 WBC (4.2-12.2) K/uL RBC (4.40-5.70) M/uL Hgb (14.0-18.0) gm/dl Hct (42.0-52.0) % MCV (81-97) fl MCH (27-33) pg MCHC (32-36) g/dl RDW (11.5-14.5) % Plt Count (130-400) K/uL MPV (7.4-10.4) fl Neutrophils % (47-80) % Band Neutrophils % (0-5) % Lymphocytes % (16-45) % Monocytes % (0-9) % Eosinophils % (0-6) % Basophils % (0-6) % Absolute Neutrophils Lymphocytes (16-45) % Monocytes (0-9) % Toxic Granulation Platelet Estimate (NORMAL) RBC Morphology Puncture Site Left wrist pCO2 41.3 (35-48) mmHg pO2 34.0 L* (83-108) mmHg HCO3 Not Reportable Oxyhemoglobin Not Reportable ABG pH 7.42 (7.35-7.45) ABG O2 Saturation Not Reportable ABG Base Excess Not Reportable Frantz Test Pass Carboxyhemoglobin Not Reportable Methemoglobin Not Reportable Actual Respiration Rate 32.0 H (10-18) /MIN FiO2 Not Reportable Sodium (136-145) mmol/L Potassium (3.4-4.5) mmol/L Chloride (98-107) mmol/L Carbon Dioxide (22-29) mmol/L Anion Gap (7-16) BUN (8-23) mg/dL Creatinine (0.7-1.2) mg/dL Estimated GFR mL/min Random Glucose (74-109) mg/dL Calcium (8.8-10.2) mg/dL NT-Pro-B Natriuret Pep (<125) pg/mL Influenza Type A Ag (NEGATIVE) Influenza Type B Ag (NEGATIVE) Disposition Disposition: Transfer Clinical Impression: COPD with acute exacerbation Disposition: Acute Care Hospital Transfer Transfer To: [facility] Reason For Transfer: needs pulmonology Accepting Physician: dr winn Time Discussed w/Accepting Physician: 18:56 Forms: Patient Portal Access Quality - Quality Measures Quality Measures: N/A - Blood Pressure Screening Does Patient Have Any of the Following: No Blood Pressure Classification: Hypertensive Reading Systolic Measurement: 181 Diastolic Measurement: 106 Screening for High Blood Pressure: < First Hypertensive BP, F/U Documented > [G8950] First Hypertensive Follow-up Interventions: Follow-up with rescreen GT 1 day and LT 4 weeks.
--- NOTE | 2019-10-27 18:37 | RADIOLOGY REPORT ---
EXAMINATION: Single View Chest EXAM DATE: 10/27/2019 5:55 PM TECHNIQUE: Single view chest INDICATION: sob COMPARISON: April 10, 2019 ENCOUNTER: Not applicable FINDINGS: Cardiac silhouette and upper mediastinal regions are stable. Redemonstration paucity of lung markings upper lobes suggesting severe emphysema. Crowding of markings perihilar and lower lobe not significa nt change from previous exam. No definite infiltrate. No pneumothorax or large pleural effusion. IMPRESSION: No definite infiltrate Findings suggest severe emphysema Dictated by: Skyler Cruz MD on 10/27/2019 6:31 PM. .
== END 2019-10-27 20:07 | disposition short-term general hospital (02) ==
LOC: ER 16:45
DX: J44.1 Chronic obstructive pulmonary disease with (acute) exacerbation (principal); Z99.81 Dependence on supplemental oxygen; Z87.891 Personal history of nicotine dependence
CPT/HCPCS: 36600; 71045; 80048; 82375; 82803; 83880; 85027; 87400; 94640; 94644; 94660; 96374; 99285; J2930